=== PATIENT | female | born 1990 | race Caucasian/White ===

== ENCOUNTER 2019-05-21 10:07 | Outpatient (RCR) | payer MEDICARE, MEDICAID, SELFPAY | END 2019-05-29 00:01 | LOC: MPT 10:07 | PROVIDERS: Family Provider Family Medicine; Visit Provider Family Medicine | DX: M54.32 Sciatica, left side (principal); M25.552 Pain in left hip; M25.551 Pain in right hip | CPT/HCPCS: 97110 ×2; 97140; 97161 ==

== ENCOUNTER 2019-05-30 06:00 | Outpatient (RCR) | payer MEDICARE, SELFPAY | END 2019-06-29 23:59 | disposition home or self-care (01) | LOC: MPT 06:00 | PROVIDERS: Family Provider Family Medicine; PCP Family Medicine; Visit Provider Family Medicine | DX: M54.32 Sciatica, left side (principal); M25.552 Pain in left hip; M25.551 Pain in right hip | CPT/HCPCS: 97110; 97140 ==

== ENCOUNTER → 2019-06-25 15:07 | Outpatient (BNVA) | payer MEDICARE, MEDICAID, SELFPAY | PROVIDERS: Family Provider Family Medicine; PCP Family Medicine; Referring Provider Family Medicine; Visit Provider Specialist | DX: M25.552 Pain in left hip (principal); M25.551 Pain in right hip | CPT/HCPCS: 73522 ==

== ENCOUNTER 2019-07-11 12:40 | Outpatient (CLI) | payer MEDICARE, SELFPAY ==
--- NOTE | 2019-07-11 12:59 | MR_ITS ---
WS: [id number] MRI LEFT HIP ARTHROGRAM. INDICATION: Left hip pain TECHNIQUE: MRI of the left hip without gadolinium enhancement followed by MRI arthrogram post intra-articular administration of gado linium. Some images degraded by patient motion. FINDINGS: Normal anatomic alignment. No acute fractures. No bone marrow edema in the femoral head or neck. Normal sacrum and pubic rami. Normal iliac wings. Visualized lower lumbar spine appears unremar kable. Femoral head cartilage is normal in appearance. Anterior superior labrum is normal in appearance. No visualized labral avulsion or labral tear. Acetabulum is normal in appearance. No evidence of subchon dral cystic change. Normal posterior labrum. No evidence of labral or paralabral cyst. No evidence of capsular laxity. No inguinal lymphadenopathy. No evidence of avascular necrosis or subchondral collapse involving the left femoral head. Unremarkab le greater trochanter. Proximal femoral shafts appear normal. MR/MR hip LT wo/w con [id number] IMPRESSION: 1. Both hips are normal in appearance. No evidence of avascular necrosis or ed nic. 2. Left femoral head and neck are normal in appearance. 3. Arthrogram images demonstrate no evidence of labral tear. Normal appearing anterior superior labrum. 4. Normal-appearing articular cartilage bilaterally. Normal acetabulum.
--- NOTE | 2019-07-11 14:00 | IR_ITS ---
WS: [id number] LEFT HIP ARTHROGRAM Fluoroscopic guided left hip arthrogram. CLINICAL INFORMATION: ARTHRALGIA OF HIP COMPARISON: None. TECHNIQUE: The procedure including risks, benefits, and complications were discussed with the patient , who agreed to proceed. Timeout was performed. Using sterile technique, the patient was prepped and draped in the usual sterile fashion. After 1% lidocaine injection using fluoroscopic guidance, a 22-g auge spinal needle was advanced into the left hip joint at the femoral head neck junction. Subsequent ly 12 cc of a mixture containing 5 cc 1% lidocaine, 10 cc normal saline, 5 cc Omnipaque 300, and 0.1 cc gadolinium was administered. No immediate complications. FLUOROSCOPY TIME: 0.8 minutes. IR/[place] [id number] IMPRESSION: Uncomplicated left hip fluoroscopic guided arthrogram. MRI to follow.
[2019-07-11] MEDS: iohexol 240 mg/mL 50 mL Btl INTRA-ARTI (15:25)
== END 2019-07-11 12:41 | disposition home or self-care (01) ==
PROVIDERS: Family Provider Family Medicine; PCP Family Medicine; Visit Provider Specialist
DX: M25.552 Pain in left hip (principal)
CPT/HCPCS: 27093; 73723; 77002; A9579

== ENCOUNTER 2019-10-06 13:52 | Inpatient (IN) | payer MEDICARE, MEDICAID, SELFPAY ==
[2019-10-06] VITALS (32 sets, daily range): BP systolic 88–148; BP diastolic 53–100; PULSE 87–117; RESP 14–29; TEMP 36.4–37; O2SAT 90–100; BMI 23.3
[2019-10-06 14:18] LABS: Glucose Point of Care 506 mg/dL (70-110)
--- NOTE | 2019-10-06 14:18 | PC.NURSE ---
EKG done and shown to ER doctor at 1415 and patient blood glucose is 506, charge nurse and doctor notified
--- NOTE | 2019-10-06 14:26 | ECG_ITS ---
Measurements Intervals [place] Rate: 107 P: 66 WI: 128 QRS: -7 QRSD: 101 T: 43 QT: 351 QTc: 470 SINUS TACHYCARDIA LEFT ATRIAL ENLARGEMENT [-0.15mV P WAVE IN V1/V2] INCOMPLETE RIGHT BUNDLE BRANCH BLOCK [90+ ms QRS DURATION, TERMINAL R IN V1/V2, 40+ ms S IN I/aVL/V4/V5/V6] No previous ECG available for comparison Electronically Signed On 10-07-2019 19:56:14 CDT by Madison Martinez M.D. [id number]
--- NOTE | 2019-10-06 14:26 | XR_ITS ---
WS: [id number] XR chest 1V portable [id number] REASON FOR EXAM: chest pain FINDINGS: The heart and mediastinal interfaces are normal. The lung carrillo are adequately aerated. No definite pneumonia, pleural effusion, pulmonary edema, are pneumothorax. The hilum and apices normal. No osseous abnormalities. XR/XR chest 1V portable [id number] IMPRESSION: Negative chest for acute pathology.
[2019-10-06] MEDS: sodium chloride 0.9% 1,000 ML 999 ML IV ×2 (14:51→19:17)
[2019-10-06 14:52] LABS: ABG PCO2 34.8 mmHg (35-45); ABG PH Result 7.27 (7.35-7.45); Base Excess ABG -9.8 mmol/L (-2.0-2.0); Blood Gas Allen Test Pos; Blood Gas Sample Site Brachial, left; Blood Gas Sample Type Arterial; HCO3 ABG 16.1 mmol/L (22-26); Oxygen Device ROOM AIR; PO2 ABG 79.5 mmHg (80.0-100.0)
[2019-10-06 14:55] LABS: Basophils # 0.1 10^3/uL (0.0-0.1); Basophils % 0.3 %; Eosinophils % 0.2 %; Hematocrit 44.1 % (37.0-47.0); Hemoglobin 13.9 g/dL (11.5-15.3); Lymphocytes # 2.1 10^3/uL (0.8-4.8); Lymphocytes % 8.9 %; Mean Corpuscular HGB Conc 31.5 g/dL (30.0-36.0); Mean Corpuscular Hemoglobin 29.6 pg (28.0-34.0); Mean Platelet Volume 10.7 fL (7.4-10.4); Monocytes # 0.7 10^3/uL (0.2-0.9); Monocytes % 3.2 %; Neutrophils # 20.3 10^3/uL (1.8-7.7); Neutrophils % 86.9 %; Nucleated Red Blood Cells % 0 %; Platelet Count 430 10^3/cmm (130-400); Red Blood Count 4.69 10^6/uL (4.1-5.3); Red Cell Distribution Width 12.6 % (12.1-15.1); White Blood Count 23.3 10^3/uL (4.0-10.0)
[2019-10-06] MEDS: ondansetron 2 mg/ML SDV 2 mL 4 MG IVP (14:57)
[2019-10-06 15:04] LABS: Ketone (Acetest) Serum Positive (Negative)
[2019-10-06 15:09] LABS: INR 1.05 (0.8-1.2)
[2019-10-06 15:17] LABS: Alanine Aminotransferase 13 U/L (0-33); Albumin Level 4.7 g/dL (3.5-5.2); Alkaline Phosphatase 191 IU/L (35-105); Anion Gap 30.8 (5-19); Aspartate Amino Transferase 19 U/L (0-32); Blood Urea Nitrogen 18 mg/dL (6-20); Calcium 9.6 mg/dL (8.5-10.5); Carbon Dioxide 16 mmol/L (22-29); Chloride 93 mmol/L (98-107); Globulin 3.9 g/dL (1.3-4.6); Glomerular Filtration Rate 65.1 mL/min (90-130); Lipase 3 U/L (13-60); Osmolality Calculated 299 mOsm/kg (285-295); Potassium 4.8 mmol/L (3.5-5.1); Sodium 135 mmol/L (136-145); Total Bilirubin 0.5 mg/dL (0.15-1.2); Total Protein 8.6 g/dL (6.6-8.7)
[2019-10-06 15:19] LABS: Troponin(5th) Baseline 6 ng/mL (0-10)
[2019-10-06 15:27] LABS: Glucose 511 mg/dL (65-115)
[2019-10-06] MEDS: insulin regular-human 250 UNIT in sodium chloride 0.9% 250 ML 6 UNIT IV (15:36)
[2019-10-06] MEDS: morphine 4 mg/mL SDV 1 mL IVP (15:48)
--- NOTE | 2019-10-06 16:26 | ECG_ITS ---
Measurements Intervals [place] Rate: 99 P: 66 DC: 130 QRS: 16 QRSD: 93 T: 32 QT: 346 QTc: 445 SINUS RHYTHM INCOMPLETE RIGHT BUNDLE BRANCH BLOCK [90+ ms QRS DURATION, TERMINAL R IN V1/V2, 40+ ms S IN I/aVL/V4/V5/V6] No previous ECG available for comparison Electronically Signed On 10-07-2019 20:13:43 CDT by Madison Martinez M.D. [email or web address]
--- NOTE | 2019-10-06 16:30 | PC.NURSE ---
Pt admitted to ICU. Pt alert and present. Pt has a glucose monitor located on her left upper arm Also noted insulin pump site on right lower abdomen. Insulin pump is off and unattached at this time.
--- NOTE | 2019-10-06 17:05 | ED_ITS ---
HPI - Chest Pain General: Chief Complaint: Chest Pain Stated Complaint: cp Time Seen by Provider: 10/06/19 14:00 Source: patient Mode of arrival: ambulatory Limitations: no limitations History of Present Illness: HPI narrative: 29-year-old female patient with a history of cystic fibrosis and type 1 diabetes who presents to the emergency department with complaints of nausea and vomiting. Symptoms started about 2 to 3 days ago. She has been unable to keep anything down since yesterday. Today she developed left-sided chest pain radiating to both shoulders and that concerned her so she came in for evaluation. She denies any fever. Denies any urinary symptoms. Denies any sick contacts. Associated symptoms: Reports abdominal pain, nausea and vomiting; Deny dyspnea, fever(s) or palpitations Review of Systems General: Reports: 10 or more systems reviewed and unremarkable except in HPI and below Const: Denies: fever, chills or body aches Eyes: Denies: change in vision or blurry vision ENMT: Denies: throat pain, enlarged tonsils, painful swallowing, hoarseness, mouth pain or swelling of lips/tongue Card: Reports: chest pain; Denies: palpitations, irregular heart rhythm, edema or swelling of feet/ankles Resp: Denies: shortness of breath, productive cough or non-productive cough GI: Reports: abdominal pain, nausea and vomiting : Denies: flank pain, difficulty urinating, painful urination, urinary frequency, urinary urgency or urinary hesitancy Musc: Denies: neck pain, back pain or extremity swelling Skin/Breast: Denies: rash, itching or redness Neuro: Denies: headache, numbness in extremities or weakness in extremities Endo: Denies: excessive urination, excessive thirst or tired all the time [facility] ED PFSH: Medical History Anxiety Cystic fibrosis Depression GERD (gastroesophageal reflux disease) Pancreatitis Type 1 diabetes Surgical History History of biliary stent insertion Family History Sister Leukemia Sister , at 26 yo Cystic fibrosis Social History Smoking and tobacco status: never smoked Alcohol intake: never Substance/Drug Use: never Lives independently: Yes Marital status: Current occupational status: disabled Female Reproductive History: Date of last menstrual period: 10/04/19 Physical Exam Const: COMMON NORMALS: no apparent distress, average body habitus, oriented x3, no limitations, healthy appearing, alert and well nourished HENMT: COMMON NORMALS: normocephalic and head/scalp atraumatic HEAD & SCALP: normocephalic and atraumatic MOUTH: moist mucous membranes abnormal (Dry mucous membrane) Eye: COMMON NORMALS: PERRL, EOMs intact bilaterally, conjunctivae normal and no scleral icterus CONJUNCTIVA: Yes conjunctivae normal PUPIL: Yes PERRL Neck/C-Spine: COMMON NORMALS: full ROM, supple, no meningeal signs, no JVD and no carotid bruits Chest: COMMONS NORMALS: inspection of chest normal and palpation of chest normal Resp: COMMON NORMALS: normal respiratory effort, no retractions, no use of accessory muscles, clear to auscultation bilaterally and percussion normal AUSCULTATION: clear to auscultation bilaterally PERCUSSION: percussion normal Cardio: COMMON NORMALS: no JVD, regular rhythm, S1 normal heart sound, S2 normal heart sound, no gallops, no clicks, no murmurs, no rub and peripheral pulses 2+ throughout RATE: tachycardic RHYTHM: regular rhythm HEART SOUNDS: S1 normal and S2 normal PERIPHERAL PULSES: pulses 2+ throughout GI: COMMON NORMALS: soft to palpation, non-tender, no hepatosplenomegaly, no masses and no bruits PALPATION: Yes soft, Yes tender (Epigastric) and Yes no hepatosplenomegaly : COMMON NORMALS: Yes no CVA tenderness BLADDER/KIDNEY EXAM: Yes no CVA tenderness Back/Pelvis: COMMON NORMALS: no CVA tenderness Extremity: COMMON NORMALS: normal to inspection, full ROM, normal capillary refill, no calf tenderness and no pedal edema Neuro: COMMON NORMALS: oriented x3 SENSORIUM/ORIENTATION: Yes alert MENINGEAL SIGNS: Yes no meningeal signs Skin: COMMON NORMALS: no rashes or lesions noted, no wounds, skin turgor normal, no jaundice, no petechiae and no mottling GENERAL SKIN EXAM: no rashes or lesions noted and turgor normal Course Consultations: Consultation #1: Dr. Trammell, hospitalist. He kindly accepted patient to his service. Vital Signs: Vital signs: Vital Signs Temperature 98.6 F 10/06/19 20:00 Pulse Rate 99 10/06/19 20:00 Respiratory Rate 20 H 10/06/19 20:00 Blood Pressure 121/79 10/06/19 19:45 Pulse Oximetry 96 10/06/19 20:00 MDM - Chest Pain MDM Narrative: Medical decision making narrative: 29-year-old female with a history of cystic fibrosis and type 1 diabetes mellitus presents to the emergency department with nausea vomiting and abdominal pain. Evaluation in the emergency department showed that the patient was in diabetic ketoacidosis. She was started on an insulin drip and admitted to the intensive care unit for further evaluation and management. Medical Records: Attestation: I reviewed the patient's medical records. Lab Data: Labs: Lab Results 10/06/19 10/06/19 10/06/19 Range/Units 14:11 14:41 14:46 WBC 23.3 H (4.0-10.0) 10^3/ uL RBC 4.69 (4.1-5.3) 10^6/u L Hgb 13.9 (11.5-15.3) g/dL Hct 44.1 (37.0-47.0) % MCV 94.0 (81-99) fL MCH 29.6 (28.0-34.0) pg MCHC 31.5 (30.0-36.0) g/dL RDW 12.6 (12.1-15.1) % Plt Count 430 H (130-400) 10^3/c mm MPV 10.7 H (7.4-10.4) fL Neut % (Auto) 86.9 % Lymph % (Auto) 8.9 % [place] % (Auto) 3.2 % Eos % (Auto) 0.2 % Baso % (Auto) 0.3 % Neut # (Auto) 20.3 H (1.8-7.7) 10^3/u L Lymph # (Auto) 2.1 (0.8-4.8) 10^3/u L [place] # (Auto) 0.7 (0.2-0.9) 10^3/u L Eos # (Auto) 0.0 (0.0-0.8) 10^3/u L Baso # (Auto) 0.1 (0.0-0.1) 10^3/u L Nucleated RBC % (a uto) 0 % Nucleated RBCs # 0.0 /100WBC PT (10.5-13.3) SECO NDS INR (0.8-1.2) D-Dimer (0-0.59) ug/mIFE U Specimen Type Arterial Sample Site Brachial, left ABG pH 7.27 L (7.35-7.45) ABG pCO2 34.8 L (35-45) mmHg ABG pO2 79.5 L (80.0-100.0) mmH g ABG HCO3 16.1 L (22-26) mmol/L ABG Base Excess -9.8 L (-2.0-2.0) mmol/ L Te Test Pos Hematocrit 42.0 (37-47) % O2 Delivery Device Room air FiO2 21.0 % Metal Building As[employer]er ID cak Sodium (136-145) mmol/L Potassium (3.5-5.1) mmol/L Chloride (98-107) mmol/L Carbon Dioxide (22-29) mmol/L Anion Gap (5-19) BUN (6-20) mg/dL Creatinine (0.5-0.9) mg/dL GFR Calculation (90-130) mL/min Glucose (65-115) mg/dL POC Glucose 506 (70-110) mg/dL Calculated Osmolal ity (285-295) mOsm/k g Calcium (8.5-10.5) mg/dL Phosphorus (2.5-4.5) mg/dL Magnesium (1.7-2.3) mg/dL Total Bilirubin (0.15-1.2) mg/dL GGT (5-36) U/L AST (0-32) U/L ALT (0-33) U/L Alkaline Phosphata se (35-105) IU/L Troponin T Baselin e (0-10) ng/mL Total Protein (6.6-8.7) g/dL Albumin (3.5-5.2) g/dL Globulin (1.3-4.6) g/dL Lipase (13-60) U/L Serum Ketones (Negative) 10/06/19 10/06/19 10/06/19 Range/Units 14:46 14:46 14:46 WBC (4.0-10.0) 10^3/ uL RBC (4.1-5.3) 10^6/u L Hgb (11.5-15.3) g/dL Hct (37.0-47.0) % MCV (81-99) fL MCH (28.0-34.0) pg MCHC (30.0-36.0) g/dL RDW (12.1-15.1) % Plt Count (130-400) 10^3/c mm MPV (7.4-10.4) fL Neut % (Auto) % Lymph % (Auto) % [place] % (Auto) % Eos % (Auto) % Baso % (Auto) % Neut # (Auto) (1.8-7.7) 10^3/u L Lymph # (Auto) (0.8-4.8) 10^3/u L [place] # (Auto) (0.2-0.9) 10^3/u L Eos # (Auto) (0.0-0.8) 10^3/u L Baso # (Auto) (0.0-0.1) 10^3/u L Nucleated RBC % (a uto) % Nucleated RBCs # /100WBC PT 14.00 H (10.5-13.3) SECO NDS INR 1.05 (0.8-1.2) D-Dimer (0-0.59) ug/mIFE U Specimen Type Sample Site ABG pH (7.35-7.45) ABG pCO2 (35-45) mmHg ABG pO2 (80.0-100.0) mmH g ABG HCO3 (22-26) mmol/L ABG Base Excess (-2.0-2.0) mmol/ L Te Test Hematocrit (37-47) % O2 Delivery Device FiO2 % Metal Building Assembler ID Sodium 135 L (136-145) mmol/L Potassium 4.8 (3.5-5.1) mmol/L Chloride 93 L (98-107) mmol/L Carbon Dioxide 16 L (22-29) mmol/L Anion Gap 30.8 H (5-19) BUN 18 (6-20) mg/dL Creatinine 1.0 H (0.5-0.9) mg/dL GFR Calculation 65.1 L (90-130) mL/min Glucose 511 H* (65-115) mg/dL POC Glucose (70-110) mg/dL Calculated Osmolal ity 299 H (285-295) mOsm/k g Calcium 9.6 (8.5-10.5) mg/dL Phosphorus (2.5-4.5) mg/dL Magnesium (1.7-2.3) mg/dL Total Bilirubin 0.5 (0.15-1.2) mg/dL GGT (5-36) U/L AST 19 (0-32) U/L ALT 13 (0-33) U/L Alkaline Phosphata se 191 H (35-105) IU/L Troponin T Baselin e (0-10) ng/mL Total Protein 8.6 (6.6-8.7) g/dL Albumin 4.7 (3.5-5.2) g/dL Globulin 3.9 (1.3-4.6) g/dL Lipase 3 L (13-60) U/L Serum Ketones Positive H (Negative) 10/06/19 10/06/19 10/06/19 Range/Units 14:46 14:46 14:46 WBC (4.0-10.0) 10^3/ uL RBC (4.1-5.3) 10^6/u L Hgb (11.5-15.3) g/dL Hct (37.0-47.0) % MCV (81-99) fL MCH (28.0-34.0) pg MCHC (30.0-36.0) g/dL RDW (12.1-15.1) % Plt Count (130-400) 10^3/c mm MPV (7.4-10.4) fL Neut % (Auto) % Lymph % (Auto) % [place] % (Auto) % Eos % (Auto) % Baso % (Auto) % Neut # (Auto) (1.8-7.7) 10^3/u L Lymph # (Auto) (0.8-4.8) 10^3/u L [place] # (Auto) (0.2-0.9) 10^3/u L Eos # (Auto) (0.0-0.8) 10^3/u L Baso # (Auto) (0.0-0.1) 10^3/u L Nucleated RBC % (a uto) % Nucleated RBCs # /100WBC PT (10.5-13.3) SECO NDS INR (0.8-1.2) D-Dimer <= 0.27 (0-0.59) ug/mIFE U Specimen Type Sample Site ABG pH (7.35-7.45) ABG pCO2 (35-45) mmHg ABG pO2 (80.0-100.0) mmH g ABG HCO3 (22-26) mmol/L ABG Base Excess (-2.0-2.0) mmol/ L Te Test Hematocrit (37-47) % O2 Delivery Device FiO2 % Metal Building Assembler ID Sodium (136-145) mmol/L Potassium (3.5-5.1) mmol/L Chloride (98-107) mmol/L Carbon Dioxide (22-29) mmol/L Anion Gap (5-19) BUN (6-20) mg/dL Creatinine (0.5-0.9) mg/dL GFR Calculation (90-130) mL/min Glucose (65-115) mg/dL POC Glucose (70-110) mg/dL Calculated Osmolal ity (285-295) mOsm/k g Calcium (8.5-10.5) mg/dL Phosphorus 3.7 (2.5-4.5) mg/dL Magnesium 2.2 (1.7-2.3) mg/dL Total Bilirubin (0.15-1.2) mg/dL GGT (5-36) U/L AST (0-32) U/L ALT (0-33) U/L Alkaline Phosphata se (35-105) IU/L Troponin T Baselin e 6 (0-10) ng/mL Total Protein (6.6-8.7) g/dL Albumin (3.5-5.2) g/dL Globulin (1.3-4.6) g/dL Lipase (13-60) U/L Serum Ketones (Negative) 10/06/19 Range/Units 14:46 WBC (4.0-10.0) 10^3/ uL RBC (4.1-5.3) 10^6/u L Hgb (11.5-15.3) g/dL Hct (37.0-47.0) % MCV (81-99) fL MCH (28.0-34.0) pg MCHC (30.0-36.0) g/dL RDW (12.1-15.1) % Plt Count (130-400) 10^3/c mm MPV (7.4-10.4) fL Neut % (Auto) % Lymph % (Auto) % [place] % (Auto) % Eos % (Auto) % Baso % (Auto) % Neut # (Auto) (1.8-7.7) 10^3/u L Lymph # (Auto) (0.8-4.8) 10^3/u L [place] # (Auto) (0.2-0.9) 10^3/u L Eos # (Auto) (0.0-0.8) 10^3/u L Baso # (Auto) (0.0-0.1) 10^3/u L Nucleated RBC % (a uto) % Nucleated RBCs # /100WBC PT (10.5-13.3) SECO NDS INR (0.8-1.2) D-Dimer (0-0.59) ug/mIFE U Specimen Type Sample Site ABG pH (7.35-7.45) ABG pCO2 (35-45) mmHg ABG pO2 (80.0-100.0) mmH g ABG HCO3 (22-26) mmol/L ABG Base Excess (-2.0-2.0) mmol/ L Te Test Hematocrit (37-47) % O2 Delivery Device FiO2 % Metal Building Assembler ID Sodium (136-145) mmol/L Potassium (3.5-5.1) mmol/L Chloride (98-107) mmol/L Carbon Dioxide (22-29) mmol/L Anion Gap (5-19) BUN (6-20) mg/dL Creatinine (0.5-0.9) mg/dL GFR Calculation (90-130) mL/min Glucose (65-115) mg/dL POC Glucose (70-110) mg/dL Calculated Osmolal ity (285-295) mOsm/k g Calcium (8.5-10.5) mg/dL Phosphorus (2.5-4.5) mg/dL Magnesium (1.7-2.3) mg/dL Total Bilirubin (0.15-1.2) mg/dL GGT 10 (5-36) U/L AST (0-32) U/L ALT (0-33) U/L Alkaline Phosphata se (35-105) IU/L Troponin T Baselin e (0-10) ng/mL Total Protein (6.6-8.7) g/dL Albumin (3.5-5.2) g/dL Globulin (1.3-4.6) g/dL Lipase (13-60) U/L Serum Ketones (Negative) EKG Data^: EKG 1: Computer generated interpretation: [place] [address] Electrocardiograph Report Draft Patient: Kateryna Ordoñez #: [id number] : 1990Acct#:[id number] Age/Sex: 29 / FADM Date: 10/06/19 Loc: ICURoom/Bed: [place] [address]: Pipe Trammell MD Ordering Provider/Ordering MD: Maggy Young MD, [facility] Date of Service: 10/06/19 Procedure(s): ECG 12 lead EKG Accession Number(s): [id number] Report Number: [id number] Measurements Intervals [place] Rate: 98 P: 68 HI: 142 QRS: 24 QRSD: 98 T: 47 QT: 359 QTc: 459 SINUS RHYTHM POSSIBLE LEFT ATRIAL ENLARGEMENT [-0.1mV P WAVE IN V1/V2] INCOMPLETE RIGHT BUNDLE BRANCH BLOCK [90+ ms QRS DURATION, TERMINAL R IN V1/V2, 40+ ms S IN I/aVL/V4/V5/V6] MODERATE T-WAVE ABNORMALITY, CONSIDER ANTERIOR ISCHEMIA [-0.1+ mV T WAVE IN V3/V4] No previous ECG available for comparison [email or web address] Dictated By:INTERFACE,USER Signed By:Signed Date/Time: DD/ 01 Discharge Plan Discharge Patient Disposition: Admitted As Inpatient Admit Provider: Pipe Trammell Clinical Impression: DKA (diabetic ketoacidoses), Cystic fibrosis Condition: Stable Interventions: ED Discharge Assessment Last Done: 10/06/19 16:22 ED Charges Last Done: 10/06/19 16:27 Discharge Date/Time: 10/06/19 18:44 Coding Level of Care Code ED Store Manager for [facility]
[2019-10-06 17:28] LABS: Add Urine Microscopic? NO
[2019-10-06 17:37] LABS: Bilirubin Urine Neg (NEGATIVE); Blood Urine Neg (Negative); Glucose Urine UA 4+ (Normal); Ketones Urine 2+ (Negative); Leukocyte Esterase Urine Negative (Negative); Nitrate Urine Negative (Negative); Protein Urine Neg (Negative); Specific Gravity, Urine 1.015 (1.005-1.030); Urine Appearance Clear (CLEAR); Urine Color Yellow (Yellow); Urobilinogen Urine Norm (Negative); pH Urine 5 (5-7)
[2019-10-06 17:51] LABS: Troponin 5 2HR 7.15 ng/mL (0-10); Troponin 5 2HR Delta 1.15 ABS# (0-10)
--- NOTE | 2019-10-06 17:53 | P.HP_ITS ---
Providers/Chief Complaint Admitting Physician: Pipe Trammell Primary Care Provider: Sarahi Nation MD Chief Complaint: cp History of Present Illness Kateryna Ordoñez is a 29 year old female with cystic fibrosis, DM 1, GERD, anxiety, depression, with past episode of pancreatitis, with prior history of biliary obstruction and ERCP, recently has been having some more upper respi ratory secretions, and postnasal drip, for which she saw her yardage estimator, she says she has been coughing slightly more, but then today developed episodes of nausea and vomiting. As well as episodes of chest pain on the left side while on the road to the ER. Chest pain she reports was burning, persistent, not changing with breathing, or changing position. It resolved in ER after some pain medicine, and has not come back. She does report she changed her insulin pump yesterday, and changed the needle to the new location, although thinks that perhaps it was not infusing properly. In ER she is found in ketoacidosis, with glucose 511, anion gap 30.8, carbon dioxide 16, positive urine and serum ketones. pH 7.27 on ABG. She is tachycardic, heart rate 115. She is saturating 98% on room air. Blood pressure 122/66. Troponin is 6. Incomplete RBBB.EKG with sinus tachycardia. She is currently feeling better. No nausea or vomiting. Review of Systems Const: Reports: malaise; Denies: fever, chills or body aches Eyes: Denies: change in vision or eye redness ENMT: Denies: throat pain, oral sores/lesions or ear pain Card: Reports: chest pain; Denies: edema, pre-syncope or shortness of breath on exertion Resp: Reports: productive cough; Denies: shortness of breath, change in phlegm color or coughing up blood GI: Reports: nausea and vomiting; Denies: abdominal pain, diarrhea, constipation, blood in stool or black tarry stool : Denies: flank pain, urinary frequency or blood in urine Musc: Denies: back pain, joint swelling or redness Skin/Breast: Denies: rash, sores or new lesion Neuro: Denies: headache, numbness in extremities, weakness in extremities, dizziness, confusion or seizure-like activity Endo: Denies: excessive urination or excessive thirst Raza/Lymph: Denies: easy bleeding or purpura All/Imm: Denies: hives, throat swelling or tongue swelling Medications/Allergies Home Medications Medication Instructions Recorded Confirmed Last Taken Type azithromycin 500 mg PO DAILY 10/06/19 10/06/19 10/06/19 History wjrfcilcqig-cifyknikdg-hdchcok 1 ea PO DAILY 10/06/19 10/06/19 10/06/19 History [Trikafta] gabapentin See Rx Instructions .ROUTE .COMPLEX 10/06/19 10/06/19 10/06/19 History insulin aspart U-100 [Novolog See Rx Instructions .ROUTE .COMPLEX 10/06/19 10/06/19 Unknown History U-100 Insulin aspart] levalbuterol HCl 0.63 mg INHALATION DAILY 10/06/19 10/06/19 10/06/19 History znhbfg-giqlvned-jikatpw [Creon] See Rx Instructions .ROUTE .COMPLEX 10/06/19 10/06/19 Unknown History omeprazole 40 mg PO DAILY 10/06/19 10/06/19 10/06/19 History ursodiol 300 mg PO DAILY 10/06/19 10/06/19 10/06/19 History Allergies Allergy/AdvReac Type Severity Reaction Status Date / Time vancomycin Allergy Severe ALGY-Rash Verified 06/25/19 15:28 Influenza Virus Vaccines Allergy ALGY-Rash Verified 10/06/19 14:11 PFSH Acute PFSH: Medical History Anxiety Cystic fibrosis Depression GERD (gastroesophageal reflux disease) Pancreatitis Type 1 diabetes Surgical History History of biliary stent insertion Family History Sister Leukemia Sister , at 26 yo Cystic fibrosis Social History Smoking and tobacco status: never smoked Alcohol intake: never Substance/Drug Use: never Lives independently: Yes Marital status: Current occupational status: disabled Female Reproductive History: Date of last menstrual period: 10/04/19 Vitals/I&O/Wt Last Vital Signs Temp 97.5 F L 10/06/19 14:06 Pulse 115 H 10/06/19 16:28 Resp 21 H 10/06/19 16:22 BP 122/66 10/06/19 16:22 Pulse Ox 98 10/06/19 16:28 Weight last 48 hrs Weight 63.503 kg Physical Exam Const: COMMON NORMALS: no apparent distress and oriented x3 HENMT: COMMON NORMALS: oropharynx normal Neck/C-Spine: COMMON NORMALS: no JVD Resp: COMMON NORMALS: normal respiratory effort and clear to auscultation bilaterally AUSCULTATION: clear to auscultation bilaterally Cardio: COMMON NORMALS: no JVD, regular rhythm, S1 normal heart sound, S2 normal heart sound and no murmurs RHYTHM: regular rhythm HEART SOUNDS: S1 normal and S2 normal GI: COMMON NORMALS: normal to inspection, nondistended, normoactive bowel sounds, soft to palpation and non-tender PALPATION: Yes soft Extremity: COMMON NORMALS: no joint enlargement and no pedal edema Neuro: COMMON NORMALS: oriented x3 and moves all extremities Skin: COMMON NORMALS: no rashes or lesions noted GENERAL SKIN EXAM: no rashes or lesions noted Data : 10/06/19 14:46 10/06/19 14:46 A&P Assessment and plan (1) DKA (diabetic ketoacidoses): pH 7.27, anion gap 30.8, bicarbonate 16. Admit to ICU, fluid resuscitation, will give additional normal saline bolus, then maintain fluid infusion. We will give additional potassium 20 mEq currently. Monitor potassium magnesium, phosphorus. For now n.p.o., sips and chips. Subsequently may resume her usual regimen. At home she also usually takes high- protein, high-calorie diet due to CF. She had some nausea, but no abdominal pain. Lipase is not elevated. Does have history of episode of pancreatitis in the past. Assess right quadrant ultrasound. Status: Acute (2) Chest pain: Episode of chest pain just prior to coming to ER. Burning sensation on left side, fairly severe, which resolved in ER with pain medication. Currently asymptomatic. Does have some sinus tachycardia 90s-100. Denies any more cough than usual. Does not have more shortness of breath than usual. Has not had any hemoptysis. No unilateral edema. Discussed with her. At this time will check a d-dimer. Suspicion is not overly high for PE currently. Will have on prophylactic Lovenox dose. Low threshold for additional assessment. Complete troponin EKG series. Status: Acute (3) Alkaline phosphatase elevation: Isolated alkaline phosphatase elevation. History of biliary stenting due to obstruction in setting of cystic fibrosis. T bili, other liver parameters normal. She does not have right upper quadrant pain, no pain on examination. At this time will check GGT. Will assess right quadrant ultrasound. For now monitor. Status: Acute (4) History of biliary stent insertion: She will try to get someone to bring ursodiol. Status: Acute (5) Pancreatitis: History of. Status: Resolved (6) Type 1 diabetes: On insulin pump. Follows with a dietitian. At home maintains high- protein, high-calorie diet due to CF. Status: Chronic (7) Cystic fibrosis: She will try to get Trikafta. Status: Chronic (8) GERD (gastroesophageal reflux disease): Continue PPI Status: Acute Additional A&P Information Leukocytosis: Secondary to DKA, dehydration. At this time no sign of acute infection. Attestations Medical Necessity Statement*: Admission of over 2 midnights is going to be needed for assessment management of DKA, in the setting of CF, episode of chest pain. Coding Level of Care Code Acute Reporting Specialist for [facility] Fwd Diagnoses DKA (diabetic ketoacidoses) E11.10 Chest pain R07.9 Alkaline phosphatase elevation R74.8 History of biliary stent insertion Z98.890 Pancreatitis K85.90 Type 1 diabetes E10.9 Cystic fibrosis E84.9 GERD (gastroesophageal reflux disease) K21.9
[2019-10-06 18:00] LABS: HCG Qualitative Urine. Negative (Negative)
[2019-10-06 18:26] LABS: Magnesium 2.2 mg/dL (1.7-2.3); Phosphorus 3.7 mg/dL (2.5-4.5)
[2019-10-06 18:55] LABS: D Dimer <= 0.27 ug/mIFEU (0-0.59)
[2019-10-06] MEDS: enoxaparin 40 mg/0.4 mL Syringe SUBCUT (19:08)
[2019-10-06 19:10] LABS: Gamma Glutamyl Transferase 10 U/L (5-36)
--- NOTE | 2019-10-06 20:26 | ECG_ITS ---
Measurements Intervals [place] Rate: 98 P: 68 TN: 142 QRS: 24 QRSD: 98 T: 47 QT: 359 QTc: 459 SINUS RHYTHM POSSIBLE LEFT ATRIAL ENLARGEMENT [-0.1mV P WAVE IN V1/V2] INCOMPLETE RIGHT BUNDLE BRANCH BLOCK [90+ ms QRS DURATION, TERMINAL R IN V1/V2, 40+ ms S IN I/aVL/V4/V5/V6] MODERATE T-WAVE ABNORMALITY, CONSIDER ANTERIOR ISCHEMIA [-0.1+ mV T WAVE IN V3/V4] No previous ECG available for comparison Electronically Signed On 10-07-2019 20:12:26 CDT by aMdison Matrinez M.D. [email or web address]
[2019-10-06] MEDS: dextrose 5%-sod chloride 0.45% 1,000 ML 150 ML IV (20:29)
[2019-10-06] MEDS: gabapentin 300 mg Capsule 600 MG PO (20:40)
--- NOTE | 2019-10-06 21:29 | PC.NURSE ---
2000 patient blood glucose under 200. per Dr. order to start 0.45%NS after glucose under 200. called and verified order. order changed to D5 0.45% AT 150ML/HR. 2099 patient blood glucose reading 85. call to . per to stop insulin and continue D5 at this time. Verbal order to drawn BMP. continue to monitor blood glucose. vital signs stable at this time.
[2019-10-06 21:46] LABS: Blood Urea Nitrogen 20 mg/dL (6-20); Calcium 9.1 mg/dL (8.5-10.5); Carbon Dioxide 21 mmol/L (22-29); Chloride 104 mmol/L (98-107); Glomerular Filtration Rate 73.5 mL/min (90-130); Glucose 119 mg/dL (65-115); Osmolality Calculated 286 mOsm/kg (285-295); Sodium 139 mmol/L (136-145)
[2019-10-06] MEDS: acetaminophen 325 mg Tablet 650 MG PO (23:47)
[2019-10-07] VITALS (31 sets, daily range): BP systolic 80–121; BP diastolic 42–71; PULSE 76–99; RESP 0–30; TEMP 36.6–36.9; O2SAT 96–99
[2019-10-07] MEDS: insulin glargine 100 units/1 mL 10 UNIT SUBCUT (02:42)
--- NOTE | 2019-10-07 03:31 | PC.NURSE ---
2100 patient glucose 85. call to and informed of patient glucose. per to stop insulin drip at this time and continue to run d5 0.45%. will continue to monitor glucose. 2114 insulin drip paused 2205 BMP lab resulted. anion gap resulting at 18. notified of lab. Per Dr to monitor sugar. once sugar between 140-180 to stop D5 0.45%. Verbal order for diet change. will continue to monitor glucose and patient. 2341 D5 0.45% paused due to sugar of [address] previous order. Patient made statement of concern of having continuous insulin on self pump and not having that now. Called to voice patients concern. Per to have patient use patients insulin pump and monitor that patient uses on daily basis. will continue to monitor patient. 0125 patient sugar 249. call to and notified of glucose. at speaking with patient. Verbal order from to start sliding scale Q1H with target blood glucose level of 140-180. patient informed that we will not be using home monitor and will continue with hourly finger sticks.
[2019-10-07 04:09] LABS: Glucose Point of Care 249 mg/dL (70-110)
[2019-10-07 04:09] LABS: Glucose Point of Care 141 mg/dL (70-110)
[2019-10-07 04:09] LABS: Glucose Point of Care 238 mg/dL (70-110)
[2019-10-07 04:09] LABS: Glucose Point of Care 194 mg/dL (70-110)
[2019-10-07 04:09] LABS: Glucose Point of Care 210 mg/dL (70-110)
[2019-10-07 04:09] LABS: Glucose Point of Care 173 mg/dL (70-110)
[2019-10-07 04:09] LABS: Glucose Point of Care 105 mg/dL (70-110)
[2019-10-07 04:09] LABS: Glucose Point of Care 239 mg/dL (70-110)
[2019-10-07 04:09] LABS: Glucose Point of Care 85 mg/dL (70-110)
[2019-10-07 05:16] LABS: Glucose Point of Care 458 mg/dL (70-110)
[2019-10-07 05:16] LABS: Glucose Point of Care 373 mg/dL (70-110)
[2019-10-07 05:16] LABS: Glucose Point of Care 152 mg/dL (70-110)
[2019-10-07 05:18] LABS: Basophils # 0.1 10^3/uL (0.0-0.1); Basophils % 0.3 %; Eosinophils # 0.1 10^3/uL (0.0-0.8); Eosinophils % 0.3 %; Hemoglobin 11.1 g/dL (11.5-15.3); Lymphocytes # 3.3 10^3/uL (0.8-4.8); Lymphocytes % 20.2 %; Mean Corpuscular HGB Conc 32.6 g/dL (30.0-36.0); Mean Corpuscular Hemoglobin 29.7 pg (28.0-34.0); Mean Corpuscular Volume 90.9 fL (81-99); Mean Platelet Volume 9.8 fL (7.4-10.4); Monocytes # 1.2 10^3/uL (0.2-0.9); Monocytes % 7.2 %; Neutrophils # 11.8 10^3/uL (1.8-7.7); Neutrophils % 71.6 %; Nucleated Red Blood Cells % 0 %; Platelet Count 381 10^3/cmm (130-400); Red Blood Count 3.74 10^6/uL (4.1-5.3); Red Cell Distribution Width 12.8 % (12.1-15.1); White Blood Count 16.5 10^3/uL (4.0-10.0)
[2019-10-07 05:35] LABS: Alanine Aminotransferase 9 U/L (0-33); Albumin Level 3.4 g/dL (3.5-5.2); Alkaline Phosphatase 121 IU/L (35-105); Anion Gap 14.5 (5-19); Aspartate Amino Transferase 14 U/L (0-32); Blood Urea Nitrogen 20 mg/dL (6-20); Calcium 8.4 mg/dL (8.5-10.5); Carbon Dioxide 21 mmol/L (22-29); Chloride 104 mmol/L (98-107); Globulin 3.1 g/dL (1.3-4.6); Glomerular Filtration Rate 73.5 mL/min (90-130); Glucose 171 mg/dL (65-115); Magnesium 2.1 mg/dL (1.7-2.3); Osmolality Calculated 283 mOsm/kg (285-295); Phosphorus 1.9 mg/dL (2.5-4.5); Potassium 3.5 mmol/L (3.5-5.1); Sodium 136 mmol/L (136-145); Total Bilirubin 0.2 mg/dL (0.15-1.2); Total Protein 6.5 g/dL (6.6-8.7)
[2019-10-07 06:16] LABS: Glucose Point of Care 103 mg/dL (70-110)
--- NOTE | 2019-10-07 07:00 | US_ITS ---
WS: [id number] ABDOMINAL ULTRASOUND LIMITED REASON FOR VISIT: epigastric pain TECHNIQUE: Grayscale and Doppler ultrasound examination of the abdomen. FINDINGS: Pancreas: Within normal limits Abdominal aorta and IVC: Within normal limits. Liver: Liver measures 16.2 cm in length. Normal hepatopedal flow. The parenchyma of the liver was normal. Gallbladder: Shadowing effect is noted in the gallbladder fossa suspicious of multiple stones are of operation has occurred vascular clips. No definite stones were identified on the shadowing changes. The common bile duct measured 0.90 cm a definite stone in the duct is not seen. Right kidney: Right kidney measures 10.9 cm x 5.0 cm x 4.3 cm. No hydronephrosis no stones. US/US gall bladder [id number] IMPRESSION: Shadowing of the gallbladder fossa most likely from stones clinical correlation for previous surgery recommended. The common bile duct is upper limits of normal for dilatation, a definite obstr ucting lesion is not seen.
[2019-10-07 07:17] LABS: Glucose Point of Care 57 mg/dL (70-110)
[2019-10-07] MEDS: gabapentin 300 mg Capsule PO ×2 (08:14→14:06)
--- NOTE | 2019-10-07 08:32 | PC.NURSE ---
0700 blood sugar low, 57mg/dl. 40z of OJ and breakfast given. Pt drank juice , did not eat, stated she wasn't hungry. 0800 blood sugar, low 50mg/dl. 8oz of apple juice drank by patient, peanut butter and crackers at beside.
[2019-10-07] MEDS: levalbuterol 0.63 mg/3 mL Neb INHALATION (08:35)
[2019-10-07] MEDS: pantoprazole DR 40 mg Tablet PO (09:12)
[2019-10-07] MEDS: ibuprofen 200 mg Tablet PO (10:14)
[2019-10-07 10:20] LABS: Glucose Point of Care 225 mg/dL (70-110)
[2019-10-07 10:20] LABS: Glucose Point of Care 157 mg/dL (70-110)
[2019-10-07 10:20] LABS: Glucose Point of Care 50 mg/dL (70-110)
[2019-10-07 12:08] LABS: Glucose Point of Care 249 mg/dL (70-110)
[2019-10-07 14:07] LABS: Glucose Point of Care 233 mg/dL (70-110)
[2019-10-07 15:05] LABS: Glucose Point of Care 240 mg/dL (70-110)
--- NOTE | 2019-10-07 15:10 | PC.NURSE ---
Pt's last three blood sugars have been consistent 200-240mg/dl. Notified Dr Trammell, as pt told this morning possible discharge at 1500. Dr Trammell just retunred call, pt to prepare for discharge..
--- NOTE | 2019-10-07 15:35 | PM.DCS ---
Discharge Providers Date of Admission: 10/06/19 15:41 Date of Discharge: October 07, 2019 Attending Provider at Admission: Pipe Trammell Attending Provider at Discharge: Pipe Trammell Primary Care Provider: Sarahi Nation MD Diagnoses at Discharge Discharge Diagnosis (1) DKA (diabetic ketoacidoses): Status: Acute Qualifiers: Diabetes mellitus complication detail: without coma Diabetes mellitus type: type 1 Qualified Code(s): E10.10 - Type 1 diabetes mellitus with ketoacidosis without coma (2) Chest pain: Status: Acute (3) Alkaline phosphatase elevation: Status: Acute (4) History of biliary stent insertion: Status: Acute (5) Pancreatitis: Status: Resolved (6) Type 1 diabetes: Status: Chronic (7) Cystic fibrosis: Status: Chronic (8) GERD (gastroesophageal reflux disease): Status: Acute Reason for Visit Reason for Visit: Reason For Visit: cp Hospital Course Hospital Course: Pleasant 29-year-old lady with history of cystic fibrosis, DM 1, insulin pump, past history of pancreatitis episode, as well as history of biliary problems with obstruction, needing for stenting, recently reportedly had somewhat more cough, for which she saw her beef skinner, and with some postnasal drainage, which she thought had caused her having some nausea. However, she then had progressive malaise, with worsened nausea in the last several days, and an episode of vomiting yesterday. Subsequently also had a episode of left-sided chest pain, which was burning, to the left of the sternum, left shoulder, which prompted her to come into the ER. There was no evidence of acute OR on troponin or EKG series. Her pain completely resolved without recurrence with treatment in ER. She was, however, noted to be in DKA, with glucose 511, anion gap 30.8, carbon dioxide 16, positive urine and serum ketones. pH 7.27 on ABG. She was tachycardic, heart rate 115. She is saturating 98% on room air. PE/VTE thought to be unlikely, with normal d-dimer. She received treatment with IV hydration, insulin drip, electrolyte replacement, with improvement overnight, and was able to switch over to subcutaneous insulin. She had just recently changed the infusion site for her pump, and the suspicion is that she may have inserted into some scar tissue leading to the current episode of DKA. Her alkaline phosphatase was incidentally found elevated on presentation. On right upper quadrant ultrasound she was found some shadowing which may be consistent with formation of stones. Biliary ducts noted upper limit of normal. Recommend that she follow-up with her gastroenterology specialist. Interestingly GGT is normal. She is feeling much better. She denies any pain or discomfort, and is very eager to be discharged today. Physical Exam Const: COMMON NORMALS: no apparent distress and oriented x3 HENMT: COMMON NORMALS: oropharynx normal Neck/C-Spine: COMMON NORMALS: no JVD Resp: COMMON NORMALS: normal respiratory effort and clear to auscultation bilaterally AUSCULTATION: clear to auscultation bilaterally Cardio: COMMON NORMALS: no JVD, regular rhythm, S1 normal heart sound, S2 normal heart sound and no murmurs RHYTHM: regular rhythm HEART SOUNDS: S1 normal and S2 normal GI: COMMON NORMALS: normal to inspection, nondistended, normoactive bowel sounds, soft to palpation and non-tender PALPATION: Yes soft Extremity: COMMON NORMALS: no joint enlargement and no pedal edema Neuro: COMMON NORMALS: oriented x3 and moves all extremities Skin: COMMON NORMALS: no rashes or lesions noted GENERAL SKIN EXAM: no rashes or lesions noted Discharge Data Data Completed and Pending: Completed Studies During Hospitalization Category Date Time Status XR chest 1V derek ble [id number] Stat Exams 10/06/19 14:26 Completed US gall bladder 7 [id number] Routine Ultrasound 10/07/19 07:00 Completed Pending at discharge Category Date Time Status Complete Blood Co unt w/Auto AM LABS Lab 10/08/19 04:00 Ordered Complete Blood Co unt w/Auto AM LABS Lab 10/09/19 04:00 Ordered Comprehensive Met abolic Panel AM LA BS Lab 10/08/19 04:00 Ordered Comprehensive Met abolic Panel AM LA BS Lab 10/09/19 04:00 Ordered Magnesium AM LABS Lab 10/08/19 04:00 Ordered Magnesium AM LABS Lab 10/09/19 04:00 Ordered Phosphorus AM LAB S Lab 10/08/19 04:00 Ordered Phosphorus AM LAB S Lab 10/09/19 04:00 Ordered Labs from last 24 hours 10/07/19 10/07/19 10/07/19 15:01 13:50 11:53 WBC RBC Hgb Hct MCV MCH MCHC RDW Plt Count MPV Neut % (Auto) Lymph % (Auto) Bates % (Auto) Eos % (Auto) Baso % (Auto) Neut # (Auto) Lymph # (Auto) Bates # (Auto) Eos # (Auto) Baso # (Auto) Nucleated RBC % (a uto) Nucleated RBCs # D-Dimer Sodium Potassium Chloride Carbon Dioxide Anion Gap BUN Creatinine GFR Calculation Glucose POC Glucose 240 233 249 Calculated Osmolal ity Calcium Phosphorus Magnesium Total Bilirubin GGT AST ALT Alkaline Phosphata se Troponin I 6 Hour Troponin I Hi Sens Del Troponin T 120 Min [place] Troponin T Total Protein Albumin Globulin HCG, Qual Urine Color Urine Appearance Urine pH Ur Specific Gravit y Urine Protein Urine Glucose (UA) Urine Ketones Urine Blood Urine Nitrate Urine Bilirubin Urine Urobilinogen Ur Leukocyte Gloria ase 10/07/19 10/07/19 10/07/19 10:16 09:14 08:10 WBC RBC Hgb Hct MCV MCH MCHC RDW Plt Count MPV Neut % (Auto) Lymph % (Auto) Bates % (Auto) Eos % (Auto) Baso % (Auto) Neut # (Auto) Lymph # (Auto) Bates # (Auto) Eos # (Auto) Baso # (Auto) Nucleated RBC % (a uto) Nucleated RBCs # D-Dimer Sodium Potassium Chloride Carbon Dioxide Anion Gap BUN Creatinine GFR Calculation Glucose POC Glucose 225 157 50 Calculated Osmolal ity Calcium Phosphorus Magnesium Total Bilirubin GGT AST ALT Alkaline Phosphata se Troponin I 6 Hour Troponin I Hi Sens Del Troponin T 120 Min [place] Troponin T Total Protein Albumin Globulin HCG, Qual Urine Color Urine Appearance Urine pH Ur Specific Gravit y Urine Protein Urine Glucose (UA) Urine Ketones Urine Blood Urine Nitrate Urine Bilirubin Urine Urobilinogen Ur Leukocyte Gloria ase 10/07/19 10/07/19 10/07/19 07:13 06:13 05:12 WBC RBC Hgb Hct MCV MCH MCHC RDW Plt Count MPV Neut % (Auto) Lymph % (Auto) Bates % (Auto) Eos % (Auto) Baso % (Auto) Neut # (Auto) Lymph # (Auto) Bates # (Auto) Eos # (Auto) Baso # (Auto) Nucleated RBC % (a uto) Nucleated RBCs # D-Dimer Sodium Potassium Chloride Carbon Dioxide Anion Gap BUN Creatinine GFR Calculation Glucose POC Glucose 57 103 152 Calculated Osmolal ity Calcium Phosphorus Magnesium Total Bilirubin GGT AST ALT Alkaline Phosphata se Troponin I 6 Hour Troponin I Hi Sens Del Troponin T 120 Min [place] Troponin T Total Protein Albumin Globulin HCG, Qual Urine Color Urine Appearance Urine pH Ur Specific Gravit y Urine Protein Urine Glucose (UA) Urine Ketones Urine Blood Urine Nitrate Urine Bilirubin Urine Urobilinogen Ur Leukocyte Gloria ase 10/07/19 10/07/19 10/07/19 05:08 05:08 04:06 WBC 16.5 H RBC 3.74 L Hgb 11.1 L Hct 34.0 L MCV 90.9 MCH 29.7 MCHC 32.6 RDW 12.8 Plt Count 381 MPV 9.8 Neut % (Auto) 71.6 Lymph % (Auto) 20.2 Bates % (Auto) 7.2 Eos % (Auto) 0.3 Baso % (Auto) 0.3 Neut # (Auto) 11.8 H Lymph # (Auto) 3.3 Bates # (Auto) 1.2 H Eos # (Auto) 0.1 Baso # (Auto) 0.1 Nucleated RBC % (a uto) 0 Nucleated RBCs # 0.0 D-Dimer Sodium 136 Potassium 3.5 Chloride 104 Carbon Dioxide 21 L Anion Gap 14.5 BUN 20 Creatinine 0.9 GFR Calculation 73.5 L Glucose 171 H POC Glucose 194 Calculated Osmolal ity 283 L Calcium 8.4 L Phosphorus 1.9 L Magnesium 2.1 Total Bilirubin 0.2 GGT AST 14 ALT 9 Alkaline Phosphata se 121 H Troponin I 6 Hour Troponin I Hi Sens Del Troponin T 120 Min [place] Troponin T Total Protein 6.5 L D Albumin 3.4 L Globulin 3.1 HCG, Qual Urine Color Urine Appearance Urine pH Ur Specific Gravit y Urine Protein Urine Glucose (UA) Urine Ketones Urine Blood Urine Nitrate Urine Bilirubin Urine Urobilinogen Ur Leukocyte Gloria ase 10/07/19 10/07/19 10/07/19 03:17 01:55 01:25 WBC RBC Hgb Hct MCV MCH MCHC RDW Plt Count MPV Neut % (Auto) Lymph % (Auto) Bates % (Auto) Eos % (Auto) Baso % (Auto) Neut # (Auto) Lymph # (Auto) Bates # (Auto) Eos # (Auto) Baso # (Auto) Nucleated RBC % (a uto) Nucleated RBCs # D-Dimer Sodium Potassium Chloride Carbon Dioxide Anion Gap BUN Creatinine GFR Calculation Glucose POC Glucose 210 239 249 Calculated Osmolal ity Calcium Phosphorus Magnesium Total Bilirubin GGT AST ALT Alkaline Phosphata se Troponin I 6 Hour Troponin I Hi Sens Del Troponin T 120 Min [place] Troponin T Total Protein Albumin Globulin HCG, Qual Urine Color Urine Appearance Urine pH Ur Specific Gravit y Urine Protein Urine Glucose (UA) Urine Ketones Urine Blood Urine Nitrate Urine Bilirubin Urine Urobilinogen Ur Leukocyte Gloria ase 10/06/19 10/06/19 10/06/19 23:40 22:33 21:21 WBC RBC Hgb Hct MCV MCH MCHC RDW Plt Count MPV Neut % (Auto) Lymph % (Auto) Bates % (Auto) Eos % (Auto) Baso % (Auto) Neut # (Auto) Lymph # (Auto) Bates # (Auto) Eos # (Auto) Baso # (Auto) Nucleated RBC % (a uto) Nucleated RBCs # D-Dimer Sodium Potassium Chloride Carbon Dioxide Anion Gap BUN Creatinine GFR Calculation Glucose POC Glucose 173 105 85 Calculated Osmolal ity Calcium Phosphorus Magnesium Total Bilirubin GGT AST ALT Alkaline Phosphata se Troponin I 6 Hour Troponin I Hi Sens Del Troponin T 120 Min [place] Troponin T Total Protein Albumin Globulin HCG, Qual Urine Color Urine Appearance Urine pH Ur Specific Gravit y Urine Protein Urine Glucose (UA) Urine Ketones Urine Blood Urine Nitrate Urine Bilirubin Urine Urobilinogen Ur Leukocyte Gloria ase 10/06/19 10/06/19 10/06/19 21:03 21:03 20:02 WBC RBC Hgb Hct MCV MCH MCHC RDW Plt Count MPV Neut % (Auto) Lymph % (Auto) Bates % (Auto) Eos % (Auto) Baso % (Auto) Neut # (Auto) Lymph # (Auto) Bates # (Auto) Eos # (Auto) Baso # (Auto) Nucleated RBC % (a uto) Nucleated RBCs # D-Dimer Sodium 139 Potassium 4.0 Chloride 104 Carbon Dioxide 21 L Anion Gap 18.0 BUN 20 Creatinine 0.9 GFR Calculation 73.5 L Glucose 119 H POC Glucose 141 Calculated Osmolal ity 286 Calcium 9.1 Phosphorus Magnesium Total Bilirubin GGT AST ALT Alkaline Phosphata se Troponin I 6 Hour 10.00 Troponin I Hi Sens Del 4.00 Troponin T 120 Min [place] Troponin T Total Protein Albumin Globulin HCG, Qual Urine Color Urine Appearance Urine pH Ur Specific Gravit y Urine Protein Urine Glucose (UA) Urine Ketones Urine Blood Urine Nitrate Urine Bilirubin Urine Urobilinogen Ur Leukocyte Gloria ase 10/06/19 10/06/19 10/06/19 18:57 18:03 17:20 WBC RBC Hgb Hct MCV MCH MCHC RDW Plt Count MPV Neut % (Auto) Lymph % (Auto) Bates % (Auto) Eos % (Auto) Baso % (Auto) Neut # (Auto) Lymph # (Auto) Bates # (Auto) Eos # (Auto) Baso # (Auto) Nucleated RBC % (a uto) Nucleated RBCs # D-Dimer Sodium Potassium Chloride Carbon Dioxide Anion Gap BUN Creatinine GFR Calculation Glucose POC Glucose 238 373 Calculated Osmolal ity Calcium Phosphorus Magnesium Total Bilirubin GGT AST ALT Alkaline Phosphata se Troponin I 6 Hour Troponin I Hi Sens Del Troponin T 120 Min [place] Troponin T 1.15 Total Protein Albumin Globulin HCG, Qual Urine Color Urine Appearance Urine pH Ur Specific Gravit y Urine Protein Urine Glucose (UA) Urine Ketones Urine Blood Urine Nitrate Urine Bilirubin Urine Urobilinogen Ur Leukocyte Gloria ase 10/06/19 10/06/19 10/06/19 17:13 17:10 17:10 WBC RBC Hgb Hct MCV MCH MCHC RDW Plt Count MPV Neut % (Auto) Lymph % (Auto) [place] % (Auto) Eos % (Auto) Baso % (Auto) Neut # (Auto) Lymph # (Auto) Bates # (Auto) Eos # (Auto) Baso # (Auto) Nucleated RBC % (a uto) Nucleated RBCs # D-Dimer Sodium Potassium Chloride Carbon Dioxide Anion Gap BUN Creatinine GFR Calculation Glucose POC Glucose 458 Calculated Osmolal ity Calcium Phosphorus Magnesium Total Bilirubin GGT AST ALT Alkaline Phosphata se Troponin I 6 Hour Troponin I Hi Sens Del Troponin T 120 Min [place] Troponin T Total Protein Albumin Globulin HCG, Qual Negative Urine Color Yellow Urine Appearance Clear Urine pH 5 Ur Specific Gravit y 1.015 Urine Protein Neg Urine Glucose (UA) 4+ H Urine Ketones 2+ H Urine Blood Neg Urine Nitrate Negative Urine Bilirubin Neg Urine Urobilinogen Norm Ur Leukocyte Gloria ase Negative 10/06/19 10/06/19 10/06/19 14:46 14:46 14:46 WBC RBC Hgb Hct MCV MCH MCHC RDW Plt Count MPV Neut % (Auto) Lymph % (Auto) Bates % (Auto) Eos % (Auto) Baso % (Auto) Neut # (Auto) Lymph # (Auto) Bates # (Auto) Eos # (Auto) Baso # (Auto) Nucleated RBC % (a uto) Nucleated RBCs # D-Dimer <= 0.27 Sodium Potassium Chloride Carbon Dioxide Anion Gap BUN Creatinine GFR Calculation Glucose POC Glucose Calculated Osmolal ity Calcium Phosphorus 3.7 Magnesium 2.2 Total Bilirubin GGT 10 AST ALT Alkaline Phosphata se Troponin I 6 Hour Troponin I Hi Sens Del Troponin T 120 Min [place] Troponin T Total Protein Albumin Globulin HCG, Qual Urine Color Urine Appearance Urine pH Ur Specific Gravit y Urine Protein Urine Glucose (UA) Urine Ketones Urine Blood Urine Nitrate Urine Bilirubin Urine Urobilinogen Ur Leukocyte Gloria ase Vitals: Last Vital Signs Temp 98.5 F 10/07/19 15: Pulse 76 10/07/19 15: Resp 20 H 10/07/19 15:19 BP 121/70 10/07/19 15:19 Pulse Ox 99 10/07/19 15:19 Discharge Plan Discharge Patient Disposition: Home, Self-Care Condition: Stable Prescriptions: New Lantus Solostar U-100 Insulin 100 unit/mL (3 mL) insulin pen 10 unit SUBCUT .Night Qty: 15 RF: 0 insulin lispro [Humalog KwikPen Insulin] 100 unit/mL insulin pen See Rx Instructions .ROUTE .COMPLEX Qty: 15 RF: 0 Continued levalbuterol HCl 0.63 mg/3 mL solution for nebulization 0.63 mg INHALATION DAILY RF: 0 Novolog U-100 Insulin aspart 100 unit/mL solution See Rx Instructions .ROUTE .COMPLEX RF: 0 ursodiol 300 mg capsule 300 mg PO DAILY RF: 0 gabapentin 300 mg capsule See Rx Instructions .ROUTE .COMPLEX RF: 0 omeprazole 20 mg capsule,delayed release(DR/EC) 40 mg PO DAILY RF: 0 azithromycin 500 mg tablet 500 mg PO DAILY RF: 0 Creon 24,000-76,000 -120,000 unit capsule,delayed release(DR/EC) See Rx Instructions .ROUTE .COMPLEX RF: 0 Trikafta 100-50-75 mg(d) /150 mg (n) tablets, sequential 1 ea PO DAILY RF: 0 Discharge Orders: Discharge Order (Routine); Ordered 10/07/19 Ordered By: Pipe Trammell Referrals: Your, supply chain intern [Other] - 1 week Your, tailings dam laborer [Other] - 2 weeks (Alk phos elevation, cholelithiasis, upper normal bile duct) Sarahi Nation MD [Primary Care Provider] - 4-7 days (Please, call for an follow-up appointment with Sarahi Nation M.D. in 4 to 7 days. ) Discharge Diet: Diabetic and Low Fat Discharge Activity: Increase activity as tolerated Patient Instructions: Insulin Lispro (Injection), Diabetic Ketoacidosis (DC) Activity Restrictions/Additional Instructions: Continue diet as recommended per your senior occupational therapist. If you are unable to replace your pump infusion site, or there is other pump malfunction, please contact your supply chain intern as soon as possible. Please also in the meantime fill prescription for Lantus 10 units, as well as insulin sliding scale before meals and at bedtime. Continue to monitor glucose. Avoid dehydration. If you start feeling unwell, spiking fevers, having vomiting, chest pain, or other abnormal symptoms, please seek medical attention without delay. Your alkaline phosphatase was noted incidentally elevated. Ultrasound of your gallbladder showed some shadowing which may be suggestive of stone formation. Bile ducts are upper normal limit for size. Please discuss with your tailings dam laborer. Discharge Attestations Time Spent in Discharge Care*: greater than 30 min Quality Metrics Clinical Quality Measures During this hospital stay, did patient experience: None Coding Level of Care Code Acute Practical Nursing Teacher for Chg Fwd Diagnoses DKA (diabetic ketoacidoses) E10.10 Diabetes mellitus complication detail: without coma Diabetes mellitus type: type 1 Chest pain R07.9 Alkaline phosphatase elevation R74.8 History of biliary stent insertion Z98.890 Pancreatitis K85.90 Type 1 diabetes E10.9 Cystic fibrosis E84.9 GERD (gastroesophageal reflux disease) K21.9
--- NOTE | 2019-10-07 16:11 | PC.NURSE ---
Discharge orders provided and discussed. Pt declined going over care notes, stated she will read them at home. Prescriptions fxed to [place] [facility], pt to knot picker cloth tomorrow if needed. Pt stated she had insulins and rescue meds if her insulin pump stops or is not functioning correctly. Pt very knowledgeable about her CF and Diabetes. Pt discharged home.
--- NOTE | 2019-10-08 08:53 | PC.SOCIAL ---
pharmacy sent [place] due to Humalog and Lantus not being on formulary. Call placed to pharmacy and Levemir is preferred to Lantus and Novolog is preferred to Humalog. Reviewed with Dr Trammell and pharmacy notified okay to change to the formulary meds with same dosing instructions with the pens.
--- NOTE | 2019-11-02 17:12 | PC.SOCIAL ---
Notified pharmacy can do vials not pens for new insulin
== END 2019-10-07 16:04 | disposition home or self-care (01) | DRG 919 ==
LOC: ER 14:19 → ICU 15:52
PROVIDERS: Internal Medicine; Physician Assistant; Admitting Provider Internal Medicine; Emergency Provider Family Medicine; PCP Family Medicine; Visit Provider Internal Medicine
DX: T85.898A Other specified complication of other internal prosthetic devices, implants and grafts, initial encounter (principal); E10.10 Type 1 diabetes mellitus with ketoacidosis without coma; K85.90 Acute pancreatitis without necrosis or infection, unspecified; E84.9 Cystic fibrosis, unspecified; K21.9 Gastro-esophageal reflux disease without esophagitis; Z96.89 Presence of other specified functional implants; Z96.41 Presence of insulin pump (external) (internal); Y84.8 Other medical procedures as the cause of abnormal reaction of the patient, or of later complication, without mention of misadventure at the time of the procedure; Y92.009 Unspecified place in unspecified non-institutional (private) residence as the place of occurrence of the external cause; F41.8 Other specified anxiety disorders
CPT/HCPCS: 12345; 36415; 36416; 36600; 71045; 76705; 80048; 80053; 81003; 81025; 82009; 82803; 82962; 82977; 83690; 83735; 84100; 84484; 85025; 85378; 85610; 93005; 94640; 96372; 96375; 99283; J1650; J1815; J2270; J2405; J3480; J7030; J7050; J7614; J7799

== ENCOUNTER 2019-11-05 15:13 | Outpatient (CLI) | payer MEDICARE, MEDICAID, SELFPAY ==
[2019-11-05 15:49] LABS: Basophils # 0.1 10^3/uL (0.0-0.1); Basophils % 1.8 %; Eosinophils # 0.3 10^3/uL (0.0-0.8); Eosinophils % 3.4 %; Hematocrit 34.5 % (37.0-47.0); Hemoglobin 11.1 g/dL (11.5-15.3); Lymphocytes # 1.7 10^3/uL (0.8-4.8); Mean Corpuscular HGB Conc 32.2 g/dL (30.0-36.0); Mean Corpuscular Hemoglobin 30.3 pg (28.0-34.0); Mean Corpuscular Volume 94.3 fL (81-99); Mean Platelet Volume 10.1 fL (7.4-10.4); Monocytes # 0.7 10^3/uL (0.2-0.9); Monocytes % 9.6 %; Neutrophils # 4.5 10^3/uL (1.8-7.7); Neutrophils % 61.9 %; Nucleated Red Blood Cells % 0 %; Platelet Count 344 10^3/cmm (130-400); Red Blood Count 3.66 10^6/uL (4.1-5.3); Red Cell Distribution Width 12.3 % (12.1-15.1); White Blood Count 7.3 10^3/uL (4.0-10.0)
[2019-11-05 16:15] LABS: Alanine Aminotransferase 9 U/L (0-33); Albumin Level 3.5 g/dL (3.5-5.2); Alkaline Phosphatase 127 IU/L (35-105); Anion Gap 14.2 (5-19); Blood Urea Nitrogen 14 mg/dL (6-20); Carbon Dioxide 26 mmol/L (22-29); Chloride 99 mmol/L (98-107); Globulin 3.7 g/dL (1.3-4.6); Glomerular Filtration Rate 65.1 mL/min (90-130); Glucose 315 mg/dL (65-115); Osmolality Calculated 286 mOsm/kg (285-295); Potassium 5.2 mmol/L (3.5-5.1); Sodium 134 mmol/L (136-145); Total Bilirubin 0.2 mg/dL (0.15-1.2); Total Protein 7.2 g/dL (6.6-8.7)
[2019-11-05 16:58] LABS: Aspartate Amino Transferase 18 U/L (0-32)
== END 2019-11-05 15:14 | disposition home or self-care (01) ==
PROVIDERS: PCP Family Medicine; Visit Provider Internal Medicine Pulmonary Disease
DX: E84.9 Cystic fibrosis, unspecified (principal)
CPT/HCPCS: 80053; 85025

== ENCOUNTER → 2021-02-04 11:51 | Outpatient (BNVA) | payer MEDICARE, MEDICAID, SELFPAY | PROVIDERS: PCP Family Medicine; Visit Provider Emergency Medicine | DX: R11.2 Nausea with vomiting, unspecified (principal); R68.89 Other general symptoms and signs; R11.0 Nausea; K52.9 Noninfective gastroenteritis and colitis, unspecified; Z79.899 Other long term (current) drug therapy; Z20.822 Contact with and (suspected) exposure to COVID-19 | CPT/HCPCS: 80053; 87635 ==

== ENCOUNTER → 2021-03-18 12:02 | Outpatient (BNVA) | payer MEDICARE, MEDICAID, SELFPAY | PROVIDERS: PCP Family Medicine; Visit Provider Registered Nurse | DX: Z79.899 Other long term (current) drug therapy (principal) | CPT/HCPCS: 36415; 80053; 80061; 83036 ==

== ENCOUNTER 2021-09-15 21:12 | Emergency (ER) | payer MEDICARE, MEDICAID, SELFPAY ==
[2021-09-15 21:23] VITALS: BP 126/80; PULSE 99; RESP 20; TEMP 37.2; O2SAT 96; BMI 14.6
[2021-09-15 21:40] LABS: Glucose Point of Care 104 mg/dL (70-110)
--- NOTE | 2021-09-15 21:47 | W.ED.WEAKNES ---
HPI - Weakness General: Chief complaint: Weakness Stated complaint: feels like DKA Time Seen by Provider: 09/15/21 21:46 History of Present Illness: 31-year-old female comes in today with complaints of nausea and vomiting and elevated blood glucose. Patient reports that she started having some problems with her insulin pump on Tuesday evening and was not able to get it reaccessed and tell this morning. His blood glucose has been as high as 400. Patient had some nausea and some vomiting today. And was concerned that she may have diabetic ketoacidosis. Patient appears mildly unwell but not toxic. Patient does appear to be dehydrated. Patient has a history of diabetes type 1, cystic fibrosis, and major depressive disorder. Associated symptoms: Reports headache(s), nausea and vomiting; Denies chest pain Review of Systems General: Reports: 10 or more systems reviewed and unremarkable except in HPI and below Card: Denies: chest pain Resp: Denies: dyspnea GI: Reports: nausea and vomiting; Denies: diarrhea : Denies: difficulty voiding Skin/Breast: Denies: rash Neuro: Reports: headache(s) PFS ED PFSH: Medical History Anxiety Chronic post-traumatic stress disorder Cystic fibrosis Depression Generalized anxiety disorder GERD (gastroesophageal reflux disease) Major depressive disorder, recurrent, moderate Psychiatric care Type 1 diabetes Surgical History History of biliary stent insertion Family History Sister Leukemia Sister , at 26 yo Cystic fibrosis Social History Smoking and tobacco status: never smoked Alcohol intake: never Lives independently: Yes Marital status: Current occupational status: disabled Current gender identity: Female Female Reproductive History: Date of last menstrual period: 10/04/19 Physical Exam Const: COMMON NORMALS: alert HENMT: MOUTH: Abnormal oral and palatal mucosa present (Dry) Neck/C-Spine: GENERAL: Yes normal visual inspection Resp: COMMON NORMALS: normal respiratory effort and clear to auscultation bilaterally AUSCULTATION: clear to auscultation bilaterally Cardio: COMMON NORMALS: regular rate and regular rhythm RATE: regular rate RHYTHM: regular rhythm GI: COMMON NORMALS: Soft to palpation AUSCULTATION: Yes normoactive bowel sounds PALPATION: Yes Soft to palpation and No Tenderness to palpation present (GI) Extremity: COMMON NORMALS: normal to inspection Neuro: SENSORIUM/ORIENTATION: Yes alert Skin: COMMON NORMALS: no rashes or lesions noted GENERAL SKIN EXAM: no rashes or lesions noted Course Vital Signs: Vital signs: Vital Signs Temperature 98.9 F 09/15/21 21:23 Pulse Rate 82 09/15/21 23:25 Respiratory Rate 18 09/15/21 23:25 Blood Pressure 122/77 09/15/21 23:25 Pulse Oximetry 96 09/15/21 23:25 MDM - Weakness Medical Decision Making Patient comes in today for complaints of 2-day history of nausea and vomiting. Patient first thought it was because her insulin pump was acting up. Patient has spiked a sugar as high as 400. On exam abdomen soft nontender. Skin is warm and dry. Oral mucosa was dry. Differential diagnosis includes diabetic ketoacidosis, dehydration, UTI, gastroenteritis. Laboratory values indicated elevation in white blood cells at 22,000, potassium was 3.1, creatinine was 1.0, urine was positive for nitrates and white blood cells. Ketones was negative and ABG was unremarkable. Patient had dehydration most likely secondary to a urinary tract infection. Patient was hydrated with 1 L of IV fluids was able to tolerate oral fluids. Patient was given 1 g Rocephin IV. Patient will be continued to encourage fluids, cephalexin for antibiotic, Zofran for nausea, and some potassium for potassium replacement. Patient reported understanding of care plan and need for follow-up or return to the ER. Lab Data : 09/15/21 22:04 09/15/21 23:15 Laboratory Results WBC 22.5 10^3/uL (4.0-10.0) H 09/15/21 22:04 RBC 5.03 10^6/uL (4.1-5.3) 09/15/21 22:04 Hgb 14.9 g/dL (11.5-15.3) 09/15/21 22:04 Hct 44.0 % (37.0-47.0) 09/15/21 22:04 MCV 87.5 fl (81-99) 09/15/21 22:04 MCH 29.6 pg (28.0-34.0) 09/15/21 22:04 MCHC 33.9 g/dL (30.0-36.0) 09/15/21 22:04 RDW 13.3 % (12.1-15.1) 09/15/21 22:04 Plt Count 443 10^3/cmm (130-400) H 09/15/21 22:04 MPV 10.8 fL (7.4-10.4) H 09/15/21 22:04 Neut % (Auto) 79.3 % 09/15/21 22:04 Lymph % (Auto) 12.3 % 09/15/21 22:04 [place] % (Auto) 7.8 % 09/15/21 22:04 Eos % (Auto) 0.0 % 09/15/21 22:04 Baso % (Auto) 0.2 % 09/15/21 22:04 Neut # (Auto) 17.85 10^3/uL (1.8-7.7) H 09/15/21 22:04 Lymph # (Auto) 2.8 10^3/uL (0.8-4.8) 09/15/21 22:04 [place] # (Auto) 1.8 10^3/uL (0.2-0.9) H 09/15/21 22:04 Eos # (Auto) 0.0 10^3/uL (0.0-0.8) 09/15/21 22:04 Baso # (Auto) 0.1 10^3/uL (0.0-0.1) 09/15/21 22:04 Nucleated RBC % (auto) 0 % 09/15/21 22:04 Nucleated RBCs # 0.0 /100WBC 09/15/21 22:04 Sodium 136 mmol/L (136-145) 09/15/21 23:15 Potassium 3.1 mmol/L (3.5-5.1) L 09/15/21 23:15 Chloride 100 mmol/L (98-107) 09/15/21 23:15 Carbon Dioxide 23 mmol/L (22-29) 09/15/21 23:15 Anion Gap 16.1 (5-19) 09/15/21 23:15 BUN 28 mg/dL (6-20) H 09/15/21 23:15 Creatinine 1.0 mg/dL (0.5-0.9) H 09/15/21 23:15 GFR Calculation 64.3 mL/min (90-130) L 09/15/21 23:15 Glucose 81 mg/dL (65-115) 09/15/21 23:15 POC Glucose 104 mg/dL (70-110) 09/15/21 21:35 Calculated Osmolality 287 mOsm/kg (285-295) 09/15/21 23:15 Calcium 8.9 mg/dL (8.5-10.5) 09/15/21 23:15 Total Bilirubin 0.2 mg/dL (0.15-1.2) 09/15/21 23:15 AST 36 U/L (0-32) H 09/15/21 23:15 ALT 23 U/L (0-33) 09/15/21 23:15 Alkaline Phosphatase 113 IU/L (35-105) H 09/15/21 23:15 Total Protein 7.1 g/dL (6.6-8.7) 09/15/21 23:15 Albumin 3.7 g/dL (3.5-5.2) 09/15/21 23:15 Globulin 3.4 g/dL (1.3-4.6) 09/15/21 23:15 Lipase 4 U/L (13-60) L 09/15/21 23:15 HCG, Qual Negative (Negative) 09/15/21 23:15 Urine Color Yellow (Yellow) 09/15/21 22:04 Urine Appearance Cloudy (CLEAR) 09/15/21 22:04 Urine pH 5 (5-7) 09/15/21 22:04 Ur Specific [place] 1.020 (1.005-1.030) 09/15/21 22:04 Urine Protein Trace (Negative) 09/15/21 22:04 Urine Glucose (UA) Norm (Normal) 09/15/21 22:04 Urine Ketones 1+ (Negative) H 09/15/21 22:04 Urine Blood 3+ (Negative) H 09/15/21 22:04 Urine Nitrate Positive (Negative) H 09/15/21 22:04 Urine Bilirubin Neg (Negative) 09/15/21 22:04 Urine Urobilinogen Norm mg/dL (Negative) 09/15/21 22:04 Ur Leukocyte Esterase 2+ (Negative) H 09/15/21 22:04 Urine RBC 5-10 /hpf (0-2) H 09/15/21 22:04 Urine WBC 55-80 /hpf (0-5) H 09/15/21 22:04 Ur Squamous Epith Cells 10-15 /hpf (0-5) H 09/15/21 22:04 Amorphous Sediment Not Reportable 09/15/21 22:04 Urine Bacteria 4+ /hpf (NONE) H 09/15/21 22:04 Urine Mucus 1+ /hpf 09/15/21 22:04 Serum Ketones Negative (Negative) 09/15/21 23:15 Discharge Plan Discharge Patient Disposition: Home Clinical Impression: Acute dehydration UTI (urinary tract infection) Qualifiers: Urinary tract infection type: acute cystitis Hematuria presence: without hematuria Qualified Code(s): N30.00 - Acute cystitis without hematuria Nausea & vomiting Qualifiers: Vomiting type: unspecified Qualified Code(s): R11.2 - Nausea with vomiting, unspecified Condition: Stable Prescriptions: New potassium chloride 10 mEq tablet extended release 10 meq PO BID Qty: 10 0RF ondansetron 4 mg tablet,disintegrating 4 mg PO Q8H PRN (Reason: nausea and vomiting) Qty: 7 0RF cephalexin 500 mg capsule 500 mg PO BID 5 Days Qty: 10 0RF No Action Rexulti 3 mg tablet 3 mg PO DAILY Qty: 30 2RF mirtazapine 30 mg tablet See Rx Instructions .ROUTE .COMPLEX Qty: 30 2RF Dose Instruction: TAKE 1 TABLET BY MOUTH AT BEDTIME Rx Instructions: TAKE 1 TABLET BY MOUTH AT BEDTIME trazodone 50 mg tablet 50 mg PO .at bedtime Qty: 30 2RF Rx Instructions: 1/2-1 tab at bedtime levalbuterol HCl 0.63 mg/3 mL solution for nebulization 0.63 mg INHALATION DAILY 0RF Novolog U-100 Insulin aspart 100 unit/mL solution See Rx Instructions .ROUTE .COMPLEX 0RF Rx Instructions: PT STATES SHE IS ON AN INSULIN PUMP. ursodiol 300 mg capsule 300 mg PO DAILY 0RF gabapentin 300 mg capsule See Rx Instructions .ROUTE .COMPLEX 0RF Rx Instructions: PT STATES SHE TAKES 1 TABS IN THE MORNING, 1 TAB IN THE AFTERNOON, AND 2 TABS AT NIGHT omeprazole 20 mg capsule,delayed release(DR/EC) 40 mg PO DAILY 0RF azithromycin 500 mg tablet 500 mg PO DAILY 0RF Creon 24,000-76,000 -120,000 unit capsule,delayed release(DR/EC) See Rx Instructions .ROUTE .COMPLEX 0RF Rx Instructions: orally PT STATES SHE TAKES 2 TABS WITH MEALS AND 2 TABS WITH SNACKS. Trikafta 100-50-75 mg(d) /150 mg (n) tablets, sequential 1 ea PO DAILY 0RF Discharge Orders: Discharge ED (Routine); Ordered 09/16/21 Ordered By: Anthony Monge Referrals: Sarahi Nation MD [Primary Care Provider] - Discharge Diet: Advance as tolerated Discharge Activity: Increase activity as tolerated Patient Instructions: Dehydration (ED) Activity Restrictions/Additional Instructions: Home and rest. Continue drinking plenty of fluids. Activity as tolerated. Continue routine medications and treatment as directed. Follow-up with primary care. Return to ER for new concerns. Coding Level of Care Code ED Human Resources Records Clerk for Bella Fwjada Exam Comprehensive
[2021-09-15 22:16] LABS: Basophils # 0.1 10^3/uL (0.0-0.1); Basophils % 0.2 %; Hemoglobin 14.9 g/dL (11.5-15.3); Lymphocytes # 2.8 10^3/uL (0.8-4.8); Lymphocytes % 12.3 %; Mean Corpuscular HGB Conc 33.9 g/dL (30.0-36.0); Mean Corpuscular Hemoglobin 29.6 pg (28.0-34.0); Mean Corpuscular Volume 87.5 fl (81-99); Mean Platelet Volume 10.8 fL (7.4-10.4); Monocytes # 1.8 10^3/uL (0.2-0.9); Monocytes % 7.8 %; Neutrophils # 17.85 10^3/uL (1.8-7.7); Neutrophils % 79.3 %; Nucleated Red Blood Cells % 0 %; Platelet Count 443 10^3/cmm (130-400); Red Blood Count 5.03 10^6/uL (4.1-5.3); Red Cell Distribution Width 13.3 % (12.1-15.1); White Blood Count 22.5 10^3/uL (4.0-10.0)
[2021-09-15] MEDS: sodium chloride 0.9% 1,000 ML 999 ML IV (22:16)
[2021-09-15 22:31] LABS: Bilirubin Urine Neg (Negative); Blood Urine 3+ (Negative); Glucose Urine UA Norm (Normal); Ketones Urine 1+ (Negative); Nitrate Urine Positive (Negative); Protein Urine Trace (Negative); Urine Appearance Cloudy (CLEAR); Urine Color Yellow (Yellow); pH Urine 5 (5-7)
[2021-09-15 22:32] LABS: Add Urine Microscopic? YES; Leukocyte Esterase Urine 2+ (Negative); Urobilinogen Urine Norm (Negative)
[2021-09-15 22:36] LABS: Add Urine Culture? No; Bacteria Urine 4+ /hpf; Mucus Urine 1+ /hpf; WBC Urine 55-80 /hpf (0-5)
[2021-09-15] MEDS: metoclopramide 5 mg/mL SDV 2 mL 10 MG IVP (22:37)
[2021-09-15] MEDS: diphenhydrAMINE 50 mg/mL SDV 1mL 25 MG IVP (22:37)
[2021-09-15] MEDS: cefTRIAXone 1,000 MG in sodium chloride 0.9% (plus) 50 ML 100 MG IV (23:18)
[2021-09-15 23:25] VITALS: BP 122/77; PULSE 82; RESP 18; O2SAT 96
[2021-09-15 23:49] LABS: Alanine Aminotransferase 23 U/L (0-33); Albumin Level 3.7 g/dL (3.5-5.2); Alkaline Phosphatase 113 IU/L (35-105); Anion Gap 16.1 (5-19); Aspartate Amino Transferase 36 U/L (0-32); Blood Urea Nitrogen 28 mg/dL (6-20); Calcium 8.9 mg/dL (8.5-10.5); Carbon Dioxide 23 mmol/L (22-29); Chloride 100 mmol/L (98-107); Globulin 3.4 g/dL (1.3-4.6); Glomerular Filtration Rate 64.3 mL/min (90-130); Glucose 81 mg/dL (65-115); Lipase 4 U/L (13-60); Osmolality Calculated 287 mOsm/kg (285-295); Potassium 3.1 mmol/L (3.5-5.1); Sodium 136 mmol/L (136-145); Total Bilirubin 0.2 mg/dL (0.15-1.2); Total Protein 7.1 g/dL (6.6-8.7)
[2021-09-15 23:55] LABS: HCG, Serum Qual Negative (Negative); Ketone (Acetest) Serum Negative (Negative)
== END 2021-09-16 00:31 | disposition home or self-care (01) ==
PROVIDERS: Emergency Medicine; Emergency Provider Nurse Practitioner Family; PCP Family Medicine
DX: N30.00 Acute cystitis without hematuria (principal); R11.2 Nausea with vomiting, unspecified; E10.9 Type 1 diabetes mellitus without complications
CPT/HCPCS: 36416; 36600; 80053; 81001; 82009; 82803; 82962; 83690; 84703; 85025; 96365; 96375; 99283; J0696; J1200; J2765; J7030

== ENCOUNTER 2022-11-09 16:16 | Emergency (ER) | payer MEDICARE, MEDICAID, SELFPAY ==
[2022-11-09 16:25] VITALS: BP 133/87; PULSE 88; RESP 14; TEMP 36.8; O2SAT 96; BMI 21.7
[2022-11-09 18:48] LABS: Basophils % 0.2 %; Hematocrit 45.8 % (37.0-47.0); Hemoglobin 15.3 g/dL (11.5-15.3); Lymphocytes # 1.4 10^3/uL (0.8-4.8); Lymphocytes % 15.6 %; Mean Corpuscular HGB Conc 33.4 g/dL (30.0-36.0); Mean Corpuscular Hemoglobin 30.4 pg (28.0-34.0); Mean Corpuscular Volume 91.1 fl (81-99); Mean Platelet Volume 9.7 fL (7.4-10.4); Monocytes # 1.1 10^3/uL (0.2-0.9); Monocytes % 12.8 %; Neutrophils # 6.36 10^3/uL (1.8-7.7); Neutrophils % 71.2 %; Nucleated Red Blood Cells % 0 %; Platelet Count 251 10^3/cmm (130-400); Red Blood Count 5.03 10^6/uL (4.1-5.3); Red Cell Distribution Width 13.2 % (12.1-15.1); White Blood Count 8.9 10^3/uL (4.0-10.0)
--- NOTE | 2022-11-09 18:48 | ED_ITS ---
HPI - Nausea/Vomiting/Diarrhea General: Chief complaint: Nausea/Vomiting/Diarrhea Stated complaint: n/v Time Seen by Provider: 11/09/22 18:34 Source: patient Mode of arrival: ambulatory Limitations: no limitations History of Present Illness: 32-year-old female who type I diabetic states she been having sinus pain for last 2 to 3 days Meena sinus patient states stationary having nausea vomiting states she is concerned that she is getting dehydrated her blood sugars been running normal its currently 223 on her monitor. She denies any diarrhea denies any pain anywhere. Associated nausea: Yes Associated symtoms: Reports nausea; Denies chest pain, dysuria or headache(s) Review of Systems Const: Denies: fever(s), chills, body aches or change in appetite Eyes: Denies: blurry vision or eye discomfort ENMT: Reports: nasal congestion and sinus pain; Denies: throat pain or dental pain Card: Denies: chest pain Resp: Denies: dyspnea GI: Reports: nausea and vomiting; Denies: abdominal pain or diarrhea : Denies: dysuria Musc: Denies: neck pain or back pain Skin/Breast: Denies: rash Neuro: Denies: headache(s) PFSH ED PFSH: Medical History Anxiety Chronic post-traumatic stress disorder Cystic fibrosis Depression Generalized anxiety disorder GERD (gastroesophageal reflux disease) Major depressive disorder, recurrent, moderate Psychiatric care Type 1 diabetes Surgical History History of biliary stent insertion Family History Sister Leukemia Sister , at 26 yo Cystic fibrosis Social History Smoking and tobacco status: never smoked Alcohol intake: never Substance/Drug Use: never Lives independently: Yes Marital status: Current occupational status: disabled Current gender identity: Female Physical Exam Const: COMMON NORMALS: no acute distress, patient oriented x3 and healthy appearing HENMT: COMMON NORMALS: normocephalic and atraumatic HEAD & SCALP: nor mocephalic and atraumatic Eye: COMMON NORMALS: conjunctivae normal CONJUNCTIVA: Yes conjunctivae normal Neck/C-Spine: COMMON NORMALS: full ROM and supple Chest: COMMONS NORMALS: normal inspection of the chest and normal palpation of entire chest wall Resp: COMMON NORMALS: normal respiratory effort, No retractions, No use of accessory muscles and clear to auscultation bilaterally AUSCULTATION: clear to auscultation bilaterally Cardio: COMMON NORMALS: regular rate, regular rhythm and No murmurs present (Cardio) RATE: regular rate RHYTHM: regular rhythm GI: COMMON NORMALS: Normal to inspection, nondistended, normoactive bowel sounds present, Soft to palpation, non-tender and no masses PALPATION: Yes Soft to palpation Extremity: COMMON NORMALS: normal to inspection and full ROM Neuro: COMMON NORMALS: patient oriented x3, moves all extremities and no focal motor deficits Psych: COMMON NORMALS: mental status grossly normal, Normal thought process present and cooperative THOUGHT PROCESS: Normal thought process present Skin: COMMON NORMALS: no rashes or lesions noted and no wounds GENERAL SKIN EXAM: no rashes or lesions noted Course Vital Signs: Vital signs: Vital Signs Temperature 98.2 F 11/09/22 16:25 Pulse Rate 96 11/09/22 21:35 Respiratory Rate 16 11/09/22 21:35 Blood Pressure 98/80 11/09/22 21:35 Pulse Oximetry 99 11/09/22 21:35 Oxygen Delivery Me thod Room Air 11/09/22 19:42 MDM - Nausea/Vomiting/Diarrhea Medical Decision Making Patient presents here with vomiting along with likely sinus infection she feels much improved after fluids and Zofran she has had no vomiting. She been able tolerate p.o. here we will start her on Augmentin along with Zofran she has no signs of DKA her glucose here is improved as well. Medical Records I reviewed the patient's medical records. Lab Data I reviewed the patient's lab results. 11/09/22 18:30 11/09/22 18:30 Laboratory Results WBC 8.9 10^3/uL (4.0-10.0) 11/09/22 18:30 RBC 5.03 10^6/uL (4.1-5.3) 11/09/22 18:30 Hgb 15.3 g/dL (11.5-15.3) 11/09/22 18:30 Hct 45.8 % (37.0-47.0) 11/09/22 18:30 MCV 91.1 fl (81-99) 11/09/22 18:30 MCH 30.4 pg (28.0-34.0) 11/09/22 18: MCHC 33.4 g/dL (30.0-36.0) 11/09/22 18:30 RDW 13.2 % (12.1-15.1) 11/09/22 18:30 Plt Count 251 10^3/cmm (130-400) 11/09/22 18:30 MPV 9.7 fL (7.4-10.4) 11/09/22 18:30 Neut % (Auto) 71.2 % 11/09/22 18:30 Lymph % (Auto) 15.6 % 11/09/22 18: [place] % (Auto) 12.8 % 11/09/22 18:30 Eos % (Auto) 0.0 % 11/09/22 18: Baso % (Auto) 0.2 % 11/09/22 18: Neut # (Auto) 6.36 10^3/uL (1.8-7.7) 11/09/22 18:30 Lymph # (Auto) 1.4 10^3/uL (0.8-4.8) 11/09/22 18:30 [place] # (Auto) 1.1 10^3/uL (0.2-0.9) H 11/09/22 18:30 Eos # (Auto) 0.0 10^3/uL (0.0-0.8) 11/09/22 18: Baso # (Auto) 0.0 10^3/uL (0.0-0.1) 11/09/22 18:30 Nucleated RBC % (auto) 0 % 11/09/22 18:30 Nucleated RBCs # 0.0 /100WBC 11/09/22 18:30 Sodium 129 mmol/L (136-145) L 11/09/22 18:30 Potassium 5.0 mmol/L (3.5-5.1) 11/09/22 18:30 Chloride 92 mmol/L (98-107) L 11/09/22 18:30 Carbon Dioxide 21 mmol/L (22-29) L 11/09/22 18:30 Anion Gap 21.0 (5-19) H 11/09/22 18:30 BUN 18 mg/dL (6-20) 11/09/22 18:30 Creatinine 0.9 mg/dL (0.5-0.9) 11/09/22 18:30 GFR Calculation 72.1 mL/min (90-130) L 11/09/22 18:30 Glucose 339 mg/dL (65-115) H 11/09/22 18:30 POC Glucose 364 mg/dL (70-110) H 11/09/22 20:22 Calculated Osmolality 283 mOsm/kg (285-295) L 11/09/22 18:30 Calcium 9.1 mg/dL (8.5-10.5) 11/09/22 18:30 Total Bilirubin 0.2 mg/dL (0.15-1.2) 11/09/22 18:30 AST 20 U/L (0-32) 11/09/22 18:30 ALT 14 U/L (0-33) 11/09/22 18:30 Alkaline Phosphatase 159 U/L (35-105) H 11/09/22 18:30 Total Protein 9.0 g/dL (6.6-8.7) H 11/09/22 18:30 Albumin 4.4 g/dL (3.5-5.2) 11/09/22 18:30 Globulin 4.6 g/dL (1.3-4.6) 11/09/22 18:30 Lipase 5 U/L (13-60) L 11/09/22 18:30 HCG, Qual Negative (Negative) 11/09/22 18:30 Urine Color Yellow (Yellow) 11/09/22 19: Urine Appearance Clear (CLEAR) 11/09/22 19:32 Urine pH 5 (5-7) 11/09/22 19:32 Ur Specific [place] 1.020 (1.005-1.030) 11/09/22 19:32 Urine Protein Neg (Negative) 11/09/22: Urine Glucose (UA) 4+ (Normal) H 11/09/22 19:32 Urine Ketones 3+ (Negative) H 11/09/22 19:32 Urine Blood 3+ (Negative) H 11/09/22 19:32 Urine Nitrate Negative (Negative) 11/09/22: Urine Bilirubin Neg (Negative) 11/09/22 19:32 Urine Urobilinogen Norm mg/dL (Negative) 11/09/22 19:32 Ur Leukocyte Esterase Negative (Negative) 11/09/22 19:32 Urine RBC 5-10 /hpf (0-2) H 11/09/22 19:32 Urine WBC 0-4 /hpf (0-5) H 11/09/22 19:32 Ur Squamous Epith Cells 0-4 /hpf (0-5) H 11/09/22 19:32 Amorphous Sediment Not Reportable 11/09/22 19:32 Urine Bacteria Not Reportable 11/09/22 19:32 Hyaline Casts Rare /lpf 11/09/22 19:32 Urine Mucus 1+ /hpf 11/09/22 19:32 Discharge Plan Discharge Patient Disposition: Home Clinical Impression: Vomiting, Sinusitis Condition: Stable Prescriptions: New ondansetron 4 mg tablet,disintegrating 4 mg PO Q6H PRN (Reason: nausea and vomiting) Qty: 14 0RF Augmentin 500-125 mg tablet 1 tab PO BID Qty: 14 0RF No Action Rexulti 3 mg tablet 3 mg PO DAILY Qty: 30 3RF mirtazapine 30 mg tablet See Rx Instructions .ROUTE .COMPLEX Qty: 30 3RF Dose Instruction: TAKE 1 TABLET BY MOUTH AT BEDTIME Rx Instructions: TAKE 1 TABLET BY MOUTH AT BEDTIME trazodone 50 mg tablet 50 mg PO .at bedtime Qty: 30 3RF Rx Instructions: 1/2-1 tab at bedtime levalbuterol HCl 0.63 mg/3 mL solution for nebulization 0.63 mg INHALATION DAILY Novolog U-100 Insulin aspart 100 unit/mL solution See Rx Instructions .ROUTE .COMPLEX Rx Instructions: PT STATES SHE IS ON AN INSULIN PUMP. ursodiol 300 mg capsule 300 mg PO DAILY gabapentin 300 mg capsule See Rx Instructions .ROUTE .COMPLEX Rx Instructions: PT STATES SHE TAKES 1 TABS IN THE MORNING, 1 TAB IN THE AFTERNOON, AND 2 TABS AT NIGHT omeprazole 20 mg capsule,delayed release(DR/EC) 40 mg PO DAILY azithromycin 500 mg tablet 500 mg PO DAILY Creon 24,000-76,000 -120,000 unit capsule,delayed release(DR/EC) See Rx Instructions .ROUTE .COMPLEX Rx Instructions: orally PT STATES SHE TAKES 2 TABS WITH MEALS AND 2 TABS WITH SNACKS. Trikafta 100-50-75 mg(d) /150 mg (n) tablets, sequential 1 ea PO DAILY Discharge Orders: Discharge ED (Routine); Ordered 11/09/22 Ordered By: Jailyn Cano Referrals: Sarahi Nation MD [Primary Care Provider] - 1-3 days Discharge Diet: Advance as tolerated Discharge Activity: Resume usual activity Patient Instructions: Sinusitis (ED), Acute Nausea and Vomiting (ED) Coding Level of Care Code ED Professional Driver for Bella Franklin
[2022-11-09 18:59] LABS: HCG, Serum Qual Negative (Negative)
[2022-11-09 19:05] LABS: Alanine Aminotransferase 14 U/L (0-33); Albumin Level 4.4 g/dL (3.5-5.2); Alkaline Phosphatase 159 U/L (35-105); Aspartate Amino Transferase 20 U/L (0-32); Blood Urea Nitrogen 18 mg/dL (6-20); Calcium 9.1 mg/dL (8.5-10.5); Carbon Dioxide 21 mmol/L (22-29); Chloride 92 mmol/L (98-107); Globulin 4.6 g/dL (1.3-4.6); Glomerular Filtration Rate 72.1 mL/min (90-130); Glucose 339 mg/dL (65-115); Lipase 5 U/L (13-60); Osmolality Calculated 283 mOsm/kg (285-295); Sodium 129 mmol/L (136-145); Total Bilirubin 0.2 mg/dL (0.15-1.2)
--- NOTE | 2022-11-09 19:05 | PC.NURSE ---
REPORT GIVEN TO ANALIA GOODWIN ASSUMED CARE.
[2022-11-09] MEDS: sodium chloride 0.9% 1,000 ML 999 ML IV ×2 (19:40→20:37)
[2022-11-09] MEDS: ondansetron 2 mg/ML SDV 2 mL 4 MG IVP (19:40)
[2022-11-09 19:42] VITALS: BP 135/85; PULSE 88; RESP 18; O2SAT 94
[2022-11-09 20:06] LABS: Blood Urine 3+ (Negative); Glucose Urine UA 4+ (Normal); Ketones Urine 3+ (Negative); Protein Urine Neg (Negative); Urine Appearance Clear (CLEAR); Urine Color Yellow (Yellow); pH Urine 5 (5-7)
[2022-11-09 20:07] LABS: Add Urine Microscopic? YES; Bilirubin Urine Neg (Negative); Leukocyte Esterase Urine Negative (Negative); Nitrate Urine Negative (Negative); Urobilinogen Urine Norm (Negative)
[2022-11-09 20:12] LABS: Hyaline Casts Urine RARE /lpf; Mucus Urine 1+ /hpf; Squamous Epithelial Cell Urine 0-4 /hpf (0-5); WBC Urine 0-4 /hpf (0-5)
[2022-11-09 20:13] LABS: Add Urine Culture? No
[2022-11-09 20:26] LABS: Glucose Point of Care 364 mg/dL (70-110)
[2022-11-09] MEDS: insulin regular-human 100 units/1 mL 6 UNIT IVP (20:36)
--- NOTE | 2022-11-09 21:14 | PC.NURSE ---
BG 251 @ 1912; Dr. Cano notified.
[2022-11-09 21:35] VITALS: BP 98/80; PULSE 96; RESP 16; O2SAT 99
[2022-11-10 04:32] LABS: Glucose Point of Care 251 mg/dL (70-110)
== END 2022-11-09 21:36 | disposition home or self-care (01) ==
PROVIDERS: Emergency Provider Emergency Medicine; PCP Family Medicine
DX: R11.11 Vomiting without nausea (principal); J32.9 Chronic sinusitis, unspecified; Z79.4 Long term (current) use of insulin; E10.9 Type 1 diabetes mellitus without complications
CPT/HCPCS: 36415; 36416; 80053; 81001; 82962; 83690; 84703; 85025; 96361; 96374; 96375; 99284; J1815; J2405; J7030

== ENCOUNTER → 2023-02-03 14:45 | Outpatient (BNVA) | payer MEDICARE, OTHER, SELFPAY | PROVIDERS: PCP Family Medicine; Visit Provider Registered Nurse | DX: R74.8 Abnormal levels of other serum enzymes (principal); Z79.899 Other long term (current) drug therapy; M25.551 Pain in right hip; M25.552 Pain in left hip; F33.1 Major depressive disorder, recurrent, moderate; E84.9 Cystic fibrosis, unspecified; E10.9 Type 1 diabetes mellitus without complications | CPT/HCPCS: 80053; 80061; 82306; 82607; 83036; 83540; 84443; 85025 ==

== ENCOUNTER 2024-05-14 08:42 | Observation (INO) | payer MEDICARE, MEDICAID, SELFPAY ==
[2024-05-14] VITALS (38 sets, daily range): BP systolic 86–123; BP diastolic 39–84; PULSE 63–116; RESP 17–26; TEMP 36.6–36.9; O2SAT 54–100; BMI 22.6
--- NOTE | 2024-05-14 08:53 | ECG_ITS ---
[employer] Test Date: 2024-05-14 Pat Name: Kateryna Odroñez Department: Room: Gender: Female Air Moving Technician: : 1990 Requested By: Bee Aldrich Order Number: [id number] Kaplan MD: Madison Martinez M.D. Measurements Intervals [place] Rate: 115 P: 72 WI: 137 QRS: 25 QRSD: 101 T: 54 QT: 328 QTc: 454 Interpretive Statements SINUS TACHYCARDIA INCOMPLETE RIGHT BUNDLE BRANCH BLOCK [90+ ms QRS DURATION, TERMINAL R IN V1/V2, 40+ ms S IN I/aVL/V4/V5/V6] ABNORMAL RHYTHM ECG Compared to ECG 10/06/2019 20:19:04 Sinus rhythm no longer present Electronically Signed On 05-14-2024 19:35:24 SENIOR AIR DIRECTOR by Madison Martinez M.D. [email or web address]
[2024-05-14 08:58] LABS: Glucose Point of Care > 600 mg/dL (70-110)
--- NOTE | 2024-05-14 09:02 | ED_ITS ---
Documented by User: EUEGNE Jones 05/14/24 11:56 HPI - General Adult 2 General: Chief complaint: Weakness Stated complaint: hypoglycemia Time Seen by Provider: 05/14/24 08:44 Source: patient Mode of arrival: EMS Limitations: no limitations History of Present Illness: Patient is a 34-year-old female with a history of cystic fibrosis, DM 1, GERD, and anxiety/depression here for complaints of elevated blood sugars. Patient states she has a continual glucose monitor/insulin pump that she feels like went out . She checked it while I was in the room and the small cutaneous cannula was bent/broken. She states her excellence consultant is through [facility]. Patient states she woke up in the middle of the night feeling off and reported achiness and nausea. She states she was manually able to check a blood glucose which read high . She dosed herself insulin and went back to bed but did not feel any better this morning. [place] like her heart rate was high and she was very thirsty. Patient does have a history of DKA. States she has had a few episodes of nausea and vomiting this morning. Onset (ago): hour(s) Relieving factors: none Exacerbating factors: none Associated symptoms: Reports malaise, nausea and vomiting; Deny chest pain, dyspnea, headache(s), rash, palpitations or syncope Treatments prior to arrival: none Related Data Home Medications Medication Instructions Recorded Confirmed gabapentin 300 mg capsule See Rx Instructions .Route .COMPLEX 10/06/19 05/14/24 levalbuterol HCl 0.63 mg/3 mL 0.63 mg inhalation DAILY 10/06/19 05/14/24 solution for nebulization [id number] See Rx Instructions .Route .COMPLEX 10/06/19 05/14/24 24,000-76,000-120,000 unit capsule,delayed rel (Creon) omeprazole 20 mg capsule,delayed 40 mg PO DAILY 10/06/19 05/14/24 release ursodiol 300 mg capsule 300 mg PO DAILY 10/06/19 05/14/24 azithromycin 500 mg tablet 500 mg PO BID 05/14/24 05/14/24 aztreonam lysine 75 mg/mL solution 75 mg inhalation BID 05/14/24 05/14/24 for nebulization ([place]) brexpiprazole 4 mg tablet (Rexulti) 4 mg PO DAILY 05/14/24 05/14/24 buspirone 5 mg tablet 5 mg PO TID 05/14/24 05/14/24 dornase danyelle 1 mg/mL solution for 1 mg inhalation DAILY 05/14/24 05/14/24 inhalation (Pulmozyme) elexacaftor 100 mg-tezacaf 1 ea PO TID 05/14/24 05/14/24 50mg-ivacaf 75mg(d)/ivacaf 150mg(n) tablets (Trikafta) fluoride (sodium) 1.1 % dental 1 applic dental DAILY 05/14/24 05/14/24 cream (Sodium Fluoride 5000 Plus) fluticasone propionate 50 1 spray intranasal DAILY 05/14/24 05/14/24 mcg/actuation nasal spray,suspension insulin lispro 100 unit/mL See Rx Instructions .Route .COMPLEX 05/14/24 05/14/24 subcutaneous solution (Humalog U-100 Insulin) mirtazapine 45 mg tablet 45 mg PO QPM 05/14/24 05/14/24 sodium chloride 7 % for 1 inh inhalation PRN 05/14/24 05/14/24 nebulization (Hyper-Lucien) Previous Rx's Medication Instructions Recorded trazodone 50 mg tablet See Rx Instructions .Route 08/03/23 .COMPLEX #30 tabs Allergies Allergy/AdvReac Type Severity Reaction Status Date / Time vancomycin Allergy Severe ALGY-Rash Verified 11/09/22 16:24 Influenza Virus Vaccines Allergy ALGY-Rash Verified 11/09/22 16:24 Review of Systems 2 Const: Reports: body aches and malaise; Denies: fever(s), chills or fatigue Eyes: Denies: change in vision or blurry vision Card: Denies: chest pain, palpitations, irregular heart rhythm, lightheadedness, syncope or dyspnea on exertion Resp: Denies: dyspnea, productive cough or pain on inspiration GI: Reports: abdominal pain, nausea and vomiting; Denies: heartburn or diarrhea : Denies: flank pain or dysuria Musc: Denies: neck pain, back pain, extremity pain, extremity swelling or joint pain Skin/Breast: Denies: rash Neuro: Denies: headache(s), numbness in extremities, weakness in extremities or sensory changes PFSH ED 2 PFSH: Medical History Psychiatric care Chronic post-traumatic stress disorder Generalized anxiety disorder Major depressive disorder, recurrent, moderate GERD (gastroesophageal reflux disease) Depression Anxiety Type 1 diabetes Cystic fibrosis Surgical History History of biliary stent insertion Family History Sister Leukemia Sister , at 26 yo Cystic fibrosis Social History Smoking and tobacco/nicotine status: never used tobacco/nicotine Alcohol intake: never Substance/Drug Use: never Lives independently: Yes Marital status: Current occupational status: disabled Current gender identity: Female Physical Exam 2 Const: COMMON NORMALS: no acute distress, average body habitus, patient oriented x3, no limitations, healthy appearing, alert and well nourished G ENERAL APPEARANCE: cooperative ORIENTATION/CONSCIOUSNESS: Yes awake, Yes oriented to person, Yes oriented to place and Yes oriented to time HENMT: COMMON NORMALS: normocephalic and atraumatic HEAD & SCALP: n ormocephalic and atraumatic Eye: GENERAL EYE: appearance normal, both eyes and all related structures Neck/C-Spine: COMMON NORMALS: full ROM, no lymphadenopathy, supple and no meningeal signs Chest: COMMONS NORMALS: normal inspection of the chest Resp: COMMON NORMALS: normal respiratory effort and clear to auscultation bilaterally AUSCULTATION: clear to auscultation bilaterally Cardio: COMMON NORMALS: regular rhythm RATE: tachycardic RHYTHM: regular rhythm GI: COMMON NORMALS: Normal to inspection, nondistended, normoactive bowel sounds present, Soft to palpation, non-tender, No hepatosplenomegaly present and no masses PALPATION: Yes Soft to palpation and Yes No hepatosplenomegaly present : COMMON NORMALS: Yes no CVA tenderness BLADDER/KIDNEY EXAM: Yes no CVA tenderness Back/Pelvis: COMMON NORMALS: no CVA tenderness and thoracic and lumbar spine normal to inspection Extremity: COMMON NORMALS: normal to inspection GENERAL: Yes normal exam except as noted Neuro: [place] COMA SCALE: document GCS findings [place] coma scale eye opening: Spontaneous [place] coma scale verbal response: Orientated [place] coma scale motor response: [place] commands [place] coma scale total score: 15 COMMON NORMALS: patient oriented x3 SENSORIUM/ORIENTATION: Yes alert, Yes oriented to person, Yes oriented to place and Yes oriented to time MENINGEAL SIGNS: Y es no meningeal signs Skin: COMMON NORMALS: no rashes or lesions noted GENERAL SKIN EXAM: no rashes or lesions noted Course 2 Consultations: Consultation #1: Dr. Ford-accepts admission to ICU Vital Signs: Vital signs: Vital Signs Temperature 98.1 F 05/15/24 05:00 Pulse Rate 64 05/15/24 06:00 Respiratory Rate 19 H 05/15/24 06:00 Blood Pressure 80/51 05/15/24 05:45 Pulse Oximetry 98 05/15/24 06:00 Oxygen Delivery Me thod Room Air 05/15/24 05:00 MDM - General Adult Medical Decision Making Patient is a 34-year-old female here in DKA. She arrives hypotensive and tachycardic. ABG initially obtained showing a pH of 7.2. Her bicarb is 12. She has a gap of 38.3. Potassium 4.3. Blood sugars initially over 700 upon arrival. She was given 2L of fluid as well as insulin bolus and started on insulin drip for treatment of DKA. Due to her hypotension, tachycardia, elevated white count, and elevated lactate consideration was given for sepsis however clinically I do not have any concern for this and these most likely all represent changes associated with her DKA. Dr. Ford did not want prophylactic IV antibiotics. She was given bolus of fluids for treatment of the DKA. She would be an admit to ICU. Dr. Rich aware of this patient and agrees with care plan here in the emergency department. Medical Records I reviewed the patient's medical records. Lab Data I reviewed the patient's lab results. 05/14/24 09:59 05/15/24 02:42 Radiology Impressions Chest X-Ray 05/14/24 10:20 IMPRESSION: 1. Slight infiltrate, atelectasis, and/or fibrosis over portions of lungs, perihilar regions, right greater than left. Perhaps slight peribronchial thickening. Correlate for nonspecific bronchitis/bronchiolitis, reactive airways, or other process. 2. Nonspecific calcific densities over right upper quadrant abdomen. Correlation with ultrasound scan, possibly CT scan recommended. 3. Please see body of report. Laboratory Results WBC 28.25 10^3/uL (3.29-11.43) H 05/14/24 09:59 RBC 4.00 10^6/uL (3.85-5.65) 05/14/24 09:59 Hgb 12.10 g/dL (11.27-16.99) 05/14/24 09:59 Hct 38.2 % (36-47) 05/14/24 09:59 MCV 95.5 fl (85-98) 05/14/24 09:59 MCH 30.3 pg (27-33) 05/14/24 09:59 MCHC 31.7 g/dL (30-55) 05/14/24 09:59 RDW 12.3 % (12.1-15.1) 05/14/24 09:59 Plt Count 307 10^3/cmm (157-399) 05/14/24 09:59 MPV 10.0 fL (7.4-10.4) 05/14/24 09:59 Neut % (Auto) 92.4 % 05/14/24 09:59 Lymph % (Auto) 4.1 % 05/14/24 09:59 Dale % (Auto) 2.5 % 05/14/24 09:59 Eos % (Auto) 0.1 % 05/14/24 09:59 Baso % (Auto) 0.4 % 05/14/24 09:59 Neut # (Auto) 26.11 10^3/uL (1.8-7.7) H 05/14/24 09:59 Lymph # (Auto) 1.2 10^3/uL (0.8-4.8) 05/14/24 09:59 Dale # (Auto) 0.7 10^3/uL (0.2-0.9) 05/14/24 09:59 Eos # (Auto) 0.0 10^3/uL (0.0-0.8) 05/14/24 09:59 Baso # (Auto) 0.1 10^3/uL (0.0-0.1) 05/14/24 09:59 Nucleated RBC % (auto) 0 % 05/14/24 09:59 Nucleated RBCs # 0.0 /100WBC 05/14/24 09:59 Specimen Type Arterial 05/14/24 09:09 Sample Site Brachial, right 05/14/24 09:09 ABG pH 7.20 (7.35-7.45) L 05/14/24 09:09 ABG pCO2 31.2 mmHg (35-45) L 05/14/24 09:09 ABG pO2 89.5 mmHg (80.0-100.0) 05/14/24 09:09 ABG PO2/FiO2 Ratio 426 05/14/24 09:09 ABG HCO3 12.2 mmol/L (22-26) L 05/14/24 09:09 ABG O2 Saturation 95.4 05/14/24 09:09 ABG Base Excess -14.5 mmol/L (-2.0-2.0) L 05/14/24 09:09 Te Test N/a 05/14/24 09:09 A-a O2 Gradient 2.7 mmHg (5-10) L 05/14/24 09:09 Hematocrit 37.0 % (37-47) 05/14/24 09:09 Hgb O2 Saturation 94.2 % (95-100) L 05/14/24 09:09 Carboxyhemoglobin 1.1 %THgb (0.4-20.1) 05/14/24 09:09 Methemoglobin 0.2 % (0.4-1.5) L 05/14/24 09:09 Total Hemoglobin 12.1 g/dL (-16) 05/14/24 09:09 Sodium 132.0 mmol/L (131-143) 05/14/24 09:09 Potassium 4.3 mmol/L (3.5-5.0) 05/14/24 09:09 Glucose 798.0 mg/dL (70-115) H 05/14/24 09:09 Ionized Calcium 1.2 mmol/L (1.1-1.4) 05/14/24 09:09 O2 Delivery Device Room air 05/14/24 09:09 FiO2 21.0 % 05/14/24 09:09 Dining Car Conductor ID Amh 05/14/24 09:09 Sodium 134 mmol/L (136-145) L 05/14/24 09:59 Potassium 4.3 mmol/L (3.5-5.1) 05/14/24 09:59 Chloride 88 mmol/L (98-107) L 05/14/24 09:59 Carbon Dioxide 12 mmol/L (22-29) L 05/14/24 09:59 Anion Gap 38.3 (5-19) H 05/14/24 09:59 BUN 25 mg/dL (6-20) H 05/14/24 09:59 Creatinine 1.3 mg/dL (0.5-0.9) H 05/14/24 09:59 GFR Calculation 46.6 mL/min (90-130) L 05/14/24 09:59 Glucose 764 mg/dL (65-115) H* 05/14/24 09:59 POC Glucose 461 mg/dL (70-110) H 05/14/24 13:14 Calculated Osmolality 319 mOsm/kg (285-295) H 05/14/24 09:59 Lactic Acid 5.7 mmol/L (0.5-2.2) H* 05/14/24 09:59 Lactic Acid (Sepsis) 1.6 mmol/L (0.5-2.2) 05/14/24 12:52 Calcium 9.0 mg/dL (8.5-10.5) 05/14/24 09:59 Phosphorus 5.5 mg/dL (2.5-4.5) H 05/14/24 09:59 Magnesium 1.7 mg/dL (1.7-2.3) 05/14/24 09:59 Total Bilirubin 0.4 mg/dL (0.15-1.2) 05/14/24 09:59 AST 9 U/L (0-32) 05/14/24 09:59 ALT 9 U/L (0-33) 05/14/24 09:59 Alkaline Phosphatase 153 U/L (35-105) H 05/14/24 09:59 Total Protein 7.8 g/dL (6.6-8.7) 05/14/24 09:59 Albumin 3.8 g/dL (3.5-5.2) 05/14/24 09:59 Globulin 4.0 g/dL (1.3-4.6) 05/14/24 09:59 Lipase 5 U/L (13-60) L 05/14/24 09:59 HCG, Qual Negative (Negative) 05/14/24 09:59 Urine Color Yellow (Yellow) 05/14/24 11:37 Urine Appearance Clear (CLEAR) 05/14/24 11:37 Urine pH 5.0 (5-7) 05/14/24 11:37 Ur Specific [place] 1.023 (1.005-1.030) 05/14/24 11:37 Urine Protein Negative (Negative) 05/14/24 11:37 Urine Glucose (UA) 3+ (Normal) H 05/14/24 11:37 Urine Ketones 3+ (Negative) H 05/14/24 11:37 Urine Blood Trace (Negative) A 05/14/24 11:37 Urine Nitrate Negative (Negative) 05/14/24 11:37 Urine Bilirubin Negative (Negative) 05/14/24 11:37 Urine Urobilinogen 0.2 mg/dL (Negative) 05/14/24 11:37 Ur Leukocyte Esterase Negative (Negative) 05/14/24 11:37 Urine RBC 3-5 /hpf (0-2) 05/14/24 11:37 Urine WBC 0-5 /hpf (0-5) 05/14/24 11:37 Ur Squamous Epith Cells 0-5 /hpf (0-5) 05/14/24 11:37 Amorphous Sediment Not Reportable 05/14/24 11:37 Urine Bacteria None seen /hpf (NONE) 05/14/24 11:37 Hyaline Casts 1.21 /lpf 05/14/24 11:37 Serum Ketones Positive (Negative) H 05/14/24 09:59 Adenovirus (PCR) Not detected (NOT DETECT) 05/14/24 12:02 C. pneumoniae DNA (PCR) Not detected (NOT DETECT) 05/14/24 12:02 Coronavirus 229E (PCR) Not detected (NOT DETECT) 05/14/24 12:02 Human Metapneumovir PCR Not detected (NOT DETECT) 05/14/24 12:02 Influenza A (H1) PCR Not detected (NOT DETECT) 05/14/24 12:02 Influ A (H1/09) PCR Not detected (NOT DETECT) 05/14/24 12:02 Influenza A (H3) PCR Not detected (NOT DETECT) 05/14/24 12:02 Influenza Type A (PCR) Not detected (NOT DETECT) 05/14/24 12:02 Influenza Type B (PCR) Not detected (NOT DETECT) 05/14/24 12:02 M. pneumoniae (PCR) Not detected (NOT DETECT) 05/14/24 12:02 Parainfluenza 1 (PCR) Not detected (NOT DETECT) 05/14/24 12:02 Parainfluenza 2 (PCR) Not detected (NOT DETECT) 05/14/24 12:02 Parainfluenza 3 (PCR) Not detected (NOT DETECT) 05/14/24 12:02 Parainfluenza 4 (PCR) Not detected (NOT DETECT) 05/14/24 12:02 RSV Type A (PCR) Not detected (NOT DETECT) 05/14/24 12:02 RSV Type B (PCR) Not detected (NOT DETECT) 05/14/24 12:02 Entero/Rhino (PCR) Not detected (NOT DETECT) 05/14/24 12:02 SARS-CoV-2 (PCR) Not detected (NOT DETECT) 05/14/24 12:02 All radiology interpretation(s) finalized by discharge Discharge Plan Discharge Patient Disposition: Admitted As Inpatient Admit Provider: Blayne Ford Clinical Impression: DKA, type 1 Condition: Stable Coding Level of Care Code ED Transmitter Operator for Chg Fwd Documented by User: Arnold Rich DO 05/15/24 06:13 HPI - General Adult 2 General: Chief complaint: Weakness Stated complaint: hypoglycemia Time Seen by Provider: 05/14/24 08:44 Related Data Home Medications Medication Instructions Recorded Confirmed gabapentin 300 mg capsule See Rx Instructions .Route .COMPLEX 10/06/19 05/14/24 levalbuterol HCl 0.63 mg/3 mL 0.63 mg inhalation DAILY 10/06/19 05/14/24 solution for nebulization [id number] See Rx Instructions .Route .COMPLEX 10/06/19 05/14/24 24,000-76,000-120,000 unit capsule,delayed rel (Creon) omeprazole 20 mg capsule,delayed 40 mg PO DAILY 10/06/19 05/14/24 release ursodiol 300 mg capsule 300 mg PO DAILY 10/06/19 05/14/24 azithromycin 500 mg tablet 500 mg PO BID 05/14/24 05/14/24 aztreonam lysine 75 mg/mL solution 75 mg inhalation BID 05/14/24 05/14/24 for nebulization ([place]) brexpiprazole 4 mg tablet (Rexulti) 4 mg PO DAILY 05/14/24 05/14/24 buspirone 5 mg tablet 5 mg PO TID 05/14/24 05/14/24 dornase danyelle 1 mg/mL solution for 1 mg inhalation DAILY 05/14/24 05/14/24 inhalation (Pulmozyme) elexacaftor 100 mg-tezacaf 1 ea PO TID 05/14/24 05/14/24 50mg-ivacaf 75mg(d)/ivacaf 150mg(n) tablets (Trikafta) fluoride (sodium) 1.1 % dental 1 applic dental DAILY 05/14/24 05/14/24 cream (Sodium Fluoride 5000 Plus) fluticasone propionate 50 1 spray intranasal DAILY 05/14/24 05/14/24 mcg/actuation nasal spray,suspension insulin lispro 100 unit/mL See Rx Instructions .Route .COMPLEX 05/14/24 05/14/24 subcutaneous solution (Humalog U-100 Insulin) mirtazapine 45 mg tablet 45 mg PO QPM 05/14/24 05/14/24 sodium chloride 7 % for 1 inh inhalation PRN 05/14/24 05/14/24 nebulization (Hyper-Lucien) Previous Rx's Medication Instructions Recorded trazodone 50 mg tablet See Rx Instructions .Route 08/03/23 .COMPLEX #30 tabs Allergies Allergy/AdvReac Type Severity Reaction Status Date / Time vancomycin Allergy Severe ALGY-Rash Verified 11/09/22 16:24 Influenza Virus Vaccines Allergy ALGY-Rash Verified 11/09/22 16:24 PFSH ED 2 PFSH: Medical History Psychiatric care Chronic post-traumatic stress disorder Generalized anxiety disorder Major depressive disorder, recurrent, moderate GERD (gastroesophageal reflux disease) Depression Anxiety Type 1 diabetes Cystic fibrosis Surgical History History of biliary stent insertion Family History Sister Leukemia Sister , at 26 yo Cystic fibrosis Social History Smoking and tobacco/nicotine status: never used tobacco/nicotine Alcohol intake: never Substance/Drug Use: never Lives independently: Yes Marital status: Current occupational status: disabled Current gender identity: Female Physical Exam 2 Neuro: [place] COMA SCALE: document GCS findings [place] coma scale total score: 15 Course 2 Vital Signs: Vital signs: Vital Signs Temperature 98.1 F 05/15/24 05:00 Pulse Rate 64 05/15/24 06:00 Respiratory Rate 19 H 05/15/24 06:00 Blood Pressure 80/51 05/15/24 05:45 Pulse Oximetry 98 05/15/24 06:00 Oxygen Delivery Me thod Room Air 05/15/24 05:00 MDM - General Adult Medical Decision Making Patient is a 34-year-old female here in DKA. She arrives hypotensive and tachycardic. ABG initially obtained showing a pH of 7.2. Her bicarb is 12. She has a gap of 38.3. Potassium 4.3. Blood sugars initially over 700 upon arrival. She was given 2L of fluid as well as insulin bolus and started on insulin drip for treatment of DKA. Due to her hypotension, tachycardia, elevated white count, and elevated lactate consideration was given for sepsis however clinically I do not have any concern for this and these most likely all represent changes associated with her DKA. Dr. Ford did not want prophylactic IV antibiotics. She was given bolus of fluids for treatment of the DKA. She would be an admit to ICU. Dr. Rich aware of this patient and agrees with care plan here in the emergency department. Chart reviewed and patient discussed with midlevel. Agree with assessment and plan. Lab Data 05/14/24 09:59 05/15/24 02:42 Radiology Impressions Chest X-Ray 05/14/24 10:20 IMPRESSION: 1. Slight infiltrate, atelectasis, and/or fibrosis over portions of lungs, perihilar regions, right greater than left. Perhaps slight peribronchial thickening. Correlate for nonspecific bronchitis/bronchiolitis, reactive airways, or other process. 2. Nonspecific calcific densities over right upper quadrant abdomen. Correlation with ultrasound scan, possibly CT scan recommended. 3. Please see body of report. Laboratory Results WBC 28.25 10^3/uL (3.29-11.43) H 05/14/24 09:59 RBC 4.00 10^6/uL (3.85-5.65) 05/14/24 09:59 Hgb 12.10 g/dL (11.27-16.99) 05/14/24 09:59 Hct 38.2 % (36-47) 05/14/24 09:59 MCV 95.5 fl (85-98) 05/14/24 09:59 MCH 30.3 pg (27-33) 05/14/24 09:59 MCHC 31.7 g/dL (30-55) 05/14/24 09:59 RDW 12.3 % (12.1-15.1) 05/14/24 09:59 Plt Count 307 10^3/cmm (157-399) 05/14/24 09:59 MPV 10.0 fL (7.4-10.4) 05/14/24 09:59 Neut % (Auto) 92.4 % 05/14/24 09:59 Lymph % (Auto) 4.1 % 05/14/24 09:59 Dale % (Auto) 2.5 % 05/14/24 09:59 Eos % (Auto) 0.1 % 05/14/24 09:59 Baso % (Auto) 0.4 % 05/14/24 09:59 Neut # (Auto) 26.11 10^3/uL (1.8-7.7) H 05/14/24 09:59 Lymph # (Auto) 1.2 10^3/uL (0.8-4.8) 05/14/24 09:59 Dale # (Auto) 0.7 10^3/uL (0.2-0.9) 05/14/24 09:59 Eos # (Auto) 0.0 10^3/uL (0.0-0.8) 05/14/24 09:59 Baso # (Auto) 0.1 10^3/uL (0.0-0.1) 05/14/24 09:59 Nucleated RBC % (auto) 0 % 05/14/24 09:59 Nucleated RBCs # 0.0 /100WBC 05/14/24 09:59 Specimen Type Arterial 05/14/24 09:09 Sample Site Brachial, right 05/14/24 09:09 ABG pH 7.20 (7.35-7.45) L 05/14/24 09:09 ABG pCO2 31.2 mmHg (35-45) L 05/14/24 09:09 ABG pO2 89.5 mmHg (80.0-100.0) 05/14/24 09:09 ABG PO2/FiO2 Ratio 426 05/14/24 09:09 ABG HCO3 12.2 mmol/L (22-26) L 05/14/24 09:09 ABG O2 Saturation 95.4 05/14/24 09:09 ABG Base Excess -14.5 mmol/L (-2.0-2.0) L 05/14/24 09:09 Te Test N/a 05/14/24 09:09 A-a O2 Gradient 2.7 mmHg (5-10) L 05/14/24 09:09 Hematocrit 37.0 % (37-47) 05/14/24 09:09 Hgb O2 Saturation 94.2 % (95-100) L 05/14/24 09:09 Carboxyhemoglobin 1.1 %THgb (0.4-20.1) 05/14/24 09:09 Methemoglobin 0.2 % (0.4-1.5) L 05/14/24 09:09 Total Hemoglobin 12.1 g/dL (-16) 05/14/24 09:09 Sodium 132.0 mmol/L (131-143) 05/14/24 09:09 Potassium 4.3 mmol/L (3.5-5.0) 05/14/24 09:09 Glucose 798.0 mg/dL (70-115) H 05/14/24 09:09 Ionized Calcium 1.2 mmol/L (1.1-1.4) 05/14/24 09:09 O2 Delivery Device Room air 05/14/24 09:09 FiO2 21.0 % 05/14/24 09:09 Dining Car Conductor ID Amh 05/14/24 09:09 Sodium 134 mmol/L (136-145) L 05/14/24 09:59 Potassium 4.3 mmol/L (3.5-5.1) 05/14/24 09:59 Chloride 88 mmol/L (98-107) L 05/14/24 09:59 Carbon Dioxide 12 mmol/L (22-29) L 05/14/24 09:59 Anion Gap 38.3 (5-19) H 05/14/24 09:59 BUN 25 mg/dL (6-20) H 05/14/24 09:59 Creatinine 1.3 mg/dL (0.5-0.9) H 05/14/24 09:59 GFR Calculation 46.6 mL/min (90-130) L 05/14/24 09:59 Glucose 764 mg/dL (65-115) H* 05/14/24 09:59 POC Glucose 461 mg/dL (70-110) H 05/14/24 13:14 Calculated Osmolality 319 mOsm/kg (285-295) H 05/14/24 09:59 Lactic Acid 5.7 mmol/L (0.5-2.2) H* 05/14/24 09:59 Lactic Acid (Sepsis) 1.6 mmol/L (0.5-2.2) 05/14/24 12:52 Calcium 9.0 mg/dL (8.5-10.5) 05/14/24 09:59 Phosphorus 5.5 mg/dL (2.5-4.5) H 05/14/24 09:59 Magnesium 1.7 mg/dL (1.7-2.3) 05/14/24 09:59 Total Bilirubin 0.4 mg/dL (0.15-1.2) 05/14/24 09:59 AST 9 U/L (0-32) 05/14/24 09:59 ALT 9 U/L (0-33) 05/14/24 09:59 Alkaline Phosphatase 153 U/L (35-105) H 05/14/24 09:59 Total Protein 7.8 g/dL (6.6-8.7) 05/14/24 09:59 Albumin 3.8 g/dL (3.5-5.2) 05/14/24 09:59 Globulin 4.0 g/dL (1.3-4.6) 05/14/24 09:59 Lipase 5 U/L (13-60) L 05/14/24 09:59 HCG, Qual Negative (Negative) 05/14/24 09:59 Urine Color Yellow (Yellow) 05/14/24 11:37 Urine Appearance Clear (CLEAR) 05/14/24 11:37 Urine pH 5.0 (5-7) 05/14/24 11:37 Ur Specific [place] 1.023 (1.005-1.030) 05/14/24 11:37 Urine Protein Negative (Negative) 05/14/24 11:37 Urine Glucose (UA) 3+ (Normal) H 05/14/24 11:37 Urine Ketones 3+ (Negative) H 05/14/24 11:37 Urine Blood Trace (Negative) A 05/14/24 11:37 Urine Nitrate Negative (Negative) 05/14/24 11:37 Urine Bilirubin Negative (Negative) 05/14/24 11:37 Urine Urobilinogen 0.2 mg/dL (Negative) 05/14/24 11:37 Ur Leukocyte Esterase Negative (Negative) 05/14/24 11:37 Urine RBC 3-5 /hpf (0-2) 05/14/24 11:37 Urine WBC 0-5 /hpf (0-5) 05/14/24 11:37 Ur Squamous Epith Cells 0-5 /hpf (0-5) 05/14/24 11:37 Amorphous Sediment Not Reportable 05/14/24 11:37 Urine Bacteria None seen /hpf (NONE) 05/14/24 11:37 Hyaline Casts 1.21 /lpf 05/14/24 11:37 Serum Ketones Positive (Negative) H 05/14/24 09:59 Adenovirus (PCR) Not detected (NOT DETECT) 05/14/24 12:02 C. pneumoniae DNA (PCR) Not detected (NOT DETECT) 05/14/24 12:02 Coronavirus 229E (PCR) Not detected (NOT DETECT) 05/14/24 12:02 Human Metapneumovir PCR Not detected (NOT DETECT) 05/14/24 12:02 Influenza A (H1) PCR Not detected (NOT DETECT) 05/14/24 12:02 Influ A (H1/09) PCR Not detected (NOT DETECT) 05/14/24 12:02 Influenza A (H3) PCR Not detected (NOT DETECT) 05/14/24 12:02 Influenza Type A (PCR) Not detected (NOT DETECT) 05/14/24 12:02 Influenza Type B (PCR) Not detected (NOT DETECT) 05/14/24 12:02 M. pneumoniae (PCR) Not detected (NOT DETECT) 05/14/24 12:02 Parainfluenza 1 (PCR) Not detected (NOT DETECT) 05/14/24 12:02 Parainfluenza 2 (PCR) Not detected (NOT DETECT) 05/14/24 12:02 Parainfluenza 3 (PCR) Not detected (NOT DETECT) 05/14/24 12:02 Parainfluenza 4 (PCR) Not detected (NOT DETECT) 05/14/24 12:02 RSV Type A (PCR) Not detected (NOT DETECT) 05/14/24 12:02 RSV Type B (PCR) Not detected (NOT DETECT) 05/14/24 12:02 Entero/Rhino (PCR) Not detected (NOT DETECT) 05/14/24 12:02 SARS-CoV-2 (PCR) Not detected (NOT DETECT) 05/14/24 12:02 Discharge Plan Discharge Patient Disposition: Admitted As Inpatient Admit Provider: Blayne oFrd Clinical Impression: DKA, type 1 Condition: Stable Coding Level of Care Code ED Transmitter Operator for Bella Franklin
[2024-05-14 09:20] LABS: ABG PCO2 31.2 mmHg (35-45); Alveolar-Arterial Oxygen Gradi 2.7 mmHg (5-10); Base Excess ABG -14.5 mmol/L (-2.0-2.0); Blood Gas Operator Identificat AMH; Blood Gas Sample Site Brachial, right; Blood Gas Sample Type Arterial; Carboxyhemoglobin 1.1 %THgb (0.4-20.1); HCO3 ABG 12.2 mmol/L (22-26); HGB O2 Sat 94.2 % (95-100); Ionized Calcium Level - ABG 1.2 mmol/L (1.1-1.4); Methemoglobin 0.2 % (0.4-1.5); Oxygen Device ROOM AIR; Oxygen Saturation ABG 95.4; PO2 ABG 89.5 mmHg (80.0-100.0); PO2 FiO2 Ratio Arterial Blood 426; Potassium Level - ABG 4.3 mmol/L (3.5-5.0); Total Hemoglobin 12.1 g/dL (12-16)
[2024-05-14] MEDS: sodium chloride 0.9% 1,000 ML 999 ML IV (10:04)
[2024-05-14] MEDS: insulin regular-human 100 units/1 mL 8 UNIT IVP (10:04)
[2024-05-14 10:11] LABS: Basophils # 0.1 10^3/uL (0.0-0.1); Basophils % 0.4 %; Eosinophils % 0.1 %; Hematocrit 38.2 % (36-47); Lymphocytes # 1.2 10^3/uL (0.8-4.8); Lymphocytes % 4.1 %; Mean Corpuscular HGB Conc 31.7 g/dL (30-55); Mean Corpuscular Hemoglobin 30.3 pg (27-33); Mean Corpuscular Volume 95.5 fl (85-98); Monocytes # 0.7 10^3/uL (0.2-0.9); Monocytes % 2.5 %; Neutrophils # 26.11 10^3/uL (1.8-7.7); Neutrophils % 92.4 %; Nucleated Red Blood Cells % 0 %; Platelet Count 307 10^3/cmm (157-399); Red Cell Distribution Width 12.3 % (12.1-15.1); White Blood Count 28.25 10^3/uL (3.29-11.43)
--- NOTE | 2024-05-14 10:20 | XRR_ITS ---
PROCEDURE INFORMATION: Exam: XR Chest Exam date and time: 05/14/2024 10:23 AM Age: 34 years old Clinical indication: Abnormal findings; Abnormal diagnostic tests; Abnormal ekg; Additional info: Tachy, elevated white count, dka TECHNIQUE: Imaging protocol: Radiologic exam of the chest. Views: 1 view. COMPARISON: CR XR chest 1V portable [id number] 10/06/2019 2:48 PM FINDINGS: Lungs: Slight infiltrate, atelectasis, and/or fibrosis over portions of lungs, perihilar regions, right greater than left. Perhaps slight peribronchial thickening. No large areas of dense lobar consolidation seen of the lungs. Pleural spaces: No large or obvious pneumothorax nor pleural effusion seen. Heart/Mediastinum: Heart size appears within normal. Bones/joints: Mild curvature spine. Intraperitoneal space: 1.8 cm ring, rim/eggshell calcification projects over medial right upper quadrant. Additional smaller calcific densities project over the visualized right upper quadrant. Gallstones, cholelithiasis, renal stones/calculi, vascular lesions, aneurysm of renal artery or other vascular structure, or other process possible. Other findings: Shallow inspiration. XR/XR chest 1V portable [id number] IMPRESSION: 1. Slight infiltrate, atelectasis, and/or fibrosis over portions of lungs, perihilar regions, right greater than left. Perhaps slight peribronchial thickening. Correlate for nonspecific bronchitis/bronchiolitis, reactive airways, or other process. 2. Nonspecific calcific densities over right upper quadrant abdomen. Correlation with ultrasound scan, possibly CT scan recommended. 3. Please see body of report.
[2024-05-14] MEDS: INSULIN REGULAR IN 0.9 % NACL 100 UNIT/100 ML BAG 6 UNIT IV (10:26)
[2024-05-14 10:28] LABS: HCG, Serum Qual Negative (Negative); Ketone (Acetest) Serum Positive (Negative)
[2024-05-14 10:28] LABS: Glucose Point of Care > 600 mg/dL (70-110)
[2024-05-14 10:32] LABS: Alanine Aminotransferase 9 U/L (0-33); Albumin Level 3.8 g/dL (3.5-5.2); Alkaline Phosphatase 153 U/L (35-105); Anion Gap 38.3 (5-19); Aspartate Amino Transferase 9 U/L (0-32); Blood Urea Nitrogen 25 mg/dL (6-20); Carbon Dioxide 12 mmol/L (22-29); Chloride 88 mmol/L (98-107); Creatinine Clr Calc Pharmacy 58.1471; Glomerular Filtration Rate 46.6 mL/min (90-130); Lipase 5 U/L (13-60); Magnesium 1.7 mg/dL (1.7-2.3); Phosphorus 5.5 mg/dL (2.5-4.5); Potassium 4.3 mmol/L (3.5-5.1); Sodium 134 mmol/L (136-145); Total Bilirubin 0.4 mg/dL (0.15-1.2); Total Protein 7.8 g/dL (6.6-8.7)
[2024-05-14 10:40] LABS: Osmolality Calculated 319 mOsm/kg (285-295)
[2024-05-14 10:42] LABS: Glucose 764 mg/dL (65-115); Lactic Sepsis W/Reflex 5.7 mmol/L (0.5-2.2)
--- NOTE | 2024-05-14 10:58 | PC.NURSE ---
PER PROTOCOL, DECREASED PATIENT BY 50% DUE TO DROP IN BG. PATIENTS BG READING 587 AT THIS TIME.
[2024-05-14 11:01] LABS: Glucose Point of Care 587 mg/dL (70-110)
[2024-05-14 11:40] LABS: Glucose Point of Care 496 mg/dL (70-110)
--- NOTE | 2024-05-14 11:41 | PC.NURSE ---
per dr. hicks, decrease insulin rate to 2 units/hr due to decrease by 100 points in 30 mins.
--- NOTE | 2024-05-14 11:42 | PC.NURSE ---
per verbal order from dr. hicks, cancel blood cultures and zosyn.
[2024-05-14 11:48] LABS: Bilirubin Urine Negative (Negative); Blood Urine Trace (Negative); Glucose Urine UA 3+ (Normal); Ketones Urine 3+ (Negative); Leukocyte Esterase Urine Negative (Negative); Nitrate Urine Negative (Negative); Protein Urine Negative (Negative); Specific Gravity, Urine 1.023 (1.005-1.030); Urine Appearance Clear (CLEAR); Urine Color Yellow (Yellow); Urobilinogen Urine 0.2 mg/dL (Negative)
[2024-05-14 11:50] LABS: Add Urine Microscopic? YES; Bacteria Urine None Seen /hpf; Hyaline Casts Urine 1.21 /lpf; Squamous Epithelial Cell Urine 0-5 /hpf (0-5); WBC Urine 0-5 /hpf (0-5)
[2024-05-14 11:53] LABS: Reflex Lactate Order REFLEX LACTIC ORDERD
[2024-05-14] MEDS: sodium chloride 0.9% 500 ML 999 ML IV (12:00)
--- NOTE | 2024-05-14 12:21 | P.HP_ITS ---
Providers/Chief Complaint 2 Admitting Physician: Blayne Ford MD, hospitalist Primary Care Provider: Sarahi Nation MD Chief Complaint: hypoglycemia History of Present Illness Kateryna Ordoñez is a 34 year old female with history of DKA and cystic fibrosis who presents to the emergency department with history of insulin pump malfunction. She states she started feeling lightheaded, noted to have elevated sugar, and given herself some insulin but later found out that her pump was not inserted correctly, and the catheter was crimped. She reports some nausea and vomiting. No recent fever. Has a chronic cough secondary to cystic fibrosis but no worse than usual. No burning with urination. No ill contacts. No blood in stool or black or tarry stools. Has not had a DKA event in approximately 4 to 5 years. Review of Systems 2 General: Reports: 10 or more systems reviewed and unremarkable except in HPI and below Card: Denies: chest pain Medications/Allergies Home Medications Medication Instructions Recorded Confirmed Last Taken Type gabapentin 300 mg capsule See Rx Instructions .Route .COMPLEX 10/06/19 05/14/24 10/06/19 History levalbuterol HCl 0.63 mg/3 mL 0.63 mg inhalation DAILY 10/06/19 05/14/24 10/06/19 History solution for nebulization [id number] See Rx Instructions .Route .COMPLEX 10/06/19 05/14/24 Unknown History 24,000-76,000-120,000 unit capsule,delayed rel (Creon) omeprazole 20 mg capsule,delayed 40 mg PO DAILY 10/06/19 05/14/24 10/06/19 History release ursodiol 300 mg capsule 300 mg PO DAILY 10/06/19 05/14/24 10/06/19 History trazodone 50 mg tablet See Rx Instructions .Route 08/03/23 05/14/24 Unknown Rx .COMPLEX #30 tabs azithromycin 500 mg tablet 500 mg PO BID 05/14/24 05/14/24 Unknown History aztreonam lysine 75 mg/mL solution 75 mg inhalation BID 05/14/24 05/14/24 Unknown [facility] brexpiprazole 4 mg tablet (Rexulti) 4 mg PO DAILY 05/14/24 05/14/24 Unknown History buspirone 5 mg tablet 5 mg PO TID 05/14/24 05/14/24 Unknown History dornase danyelle 1 mg/mL solution for 1 mg inhalation DAILY 05/14/24 05/14/24 Unknown History inhalation (Pulmozyme) elexacaftor 100 mg-tezacaf 1 ea PO TID 05/14/24 05/14/24 Unknown History 50mg-ivacaf 75mg(d)/ivacaf 150mg(n) tablets (Trikafta) fluoride (sodium) 1.1 % dental 1 applic dental DAILY 05/14/24 05/14/24 Unknown History cream (Sodium Fluoride 5000 Plus) fluticasone propionate 50 1 spray intranasal DAILY 05/14/24 05/14/24 Unknown History mcg/actuation nasal spray,suspension insulin lispro 100 unit/mL See Rx Instructions .Route .COMPLEX 05/14/24 05/14/24 Unknown History subcutaneous solution (Humalog U-100 Insulin) mirtazapine 45 mg tablet 45 mg PO QPM 05/14/24 05/14/24 Unknown History sodium chloride 7 % for 1 inh inhalation PRN 05/14/24 05/14/24 Unknown History nebulization (Hyper-Lucien) Allergies Allergy/AdvReac Type Severity Reaction Status Date / Time vancomycin Allergy Severe ALGY-Rash Verified 11/09/22 16:24 Influenza Virus Vaccines Allergy ALGY-Rash Verified 11/09/22 16:24 PFSH Acute 2 PFSH: Medical History Psychiatric care Chronic post-traumatic stress disorder Generalized anxiety disorder Major depressive disorder, recurrent, moderate GERD (gastroesophageal reflux disease) Depression Anxiety Type 1 diabetes Cystic fibrosis Surgical History History of biliary stent insertion Family History Sister Leukemia Sister , at 26 yo Cystic fibrosis Social History Smoking and tobacco/nicotine status: never used tobacco/nicotine Alcohol intake: never Substance/Drug Use: never Lives independently: Yes Marital status: Current occupational status: disabled Current gender identity: Female Vitals/I&O/Wt Last Vital Signs Temp 97.9 F 05/14/24 08:45 Pulse 94 05/14/24 11:16 Resp 17 05/14/24 08:45 BP 121/69 05/14/24 11:16 Pulse Ox 93 05/14/24 11:16 O2 Del Method Room Air 05/14/24 11:16 05/13/24 05/14/24 05/14/24 22:59 06:59 14:59 Intake Total 1603.1 / 1603.1 Balance 1603.1 / 1603.1 Weight last 48 hrs Weight 63.503 kg Physical Exam 2 Narrative: General Exam is an alert and conversive white female, no current distress. She reports her abdomen feels a little bit better HEENT: Atraumatic normocephalic. Oropharynx clear Neck is supple no lymphadenopathy thyromegaly Cardiovascular regular rate and rhythm, borderline tachycardic, no murmur Lungs a few coarse breath sounds bilaterally Abdomen is soft nontender positive bowel sounds. No obvious organomegaly exam is deferred Extremities no cyanosis clubbing or edema, cap refill brisk Skin no rash Neuro no obvious focal deficits Data 05/14/24 09:59 05/14/24 09:59 Other Labs: Bilateral infiltrates, interstitial changes, likely consistent with her history of cystic fibrosis ABG demonstrates a pH 7.2, pCO2 of 31, pO2 of 89 on room air Lactic acid 5.7 Calcium and albumin are normal Lipase normal LFTs normal with exception of alk phos of 153 Magnesium 1.7 hCG negative Urinalysis with 3-5 reds, 0-5 whites Ketones positive Viral respiratory panel is pending, ordered through the emergency department A&P Assessment and plan (1) DKA, type 1: Patient is in DKA, likely secondary to malfunction of insulin pump since last night DKA protocol Close follow-up of electrolytes every 4 hours Instructed ER to give total of at least 2 L bolus. Therefore we will give her another 500 cc thence of NS bolus After gap corrects, initiate long acting insulin and sliding scale May have clear liquid diet now ICU observation status Elevated white blood cell count likely secondary to demargination from significant stress of DKA. CBC tomorrow. Qualifiers: Diabetes mellitus complication detail: without coma Qualified Code(s): E10.10 - Type 1 diabetes mellitus with ketoacidosis without coma (2) Cystic fibrosis: Patient with history of cystic fibrosis Continue current medications Plan Multiple other medical problems as outlined in past medical history Full code Lovenox for DVT prophylaxis Attestations 2 Medical Necessity Statement*: Will need less than 2 midnight stay for evaluation and treatment of DKA Diagnoses DKA, type 1 E10.10 Diabetes mellitus complication detail: without coma Cystic fibrosis E84.9 Time Spent (min) 48
[2024-05-14] MEDS: acetaminophen 325 mg Tablet 650 MG PO (12:29)
[2024-05-14 12:35] LABS: Glucose Point of Care 356 mg/dL (70-110)
[2024-05-14] MEDS: dextrose 5%-ns + KCl 20 20 MEQ/1,000 ML BAG 100 MEQ IV ×2 (13:02→22:56)
--- NOTE | 2024-05-14 13:04 | PC.NURSE ---
DUE TO RAPID DROP IN BLOOD SUGAR, DR. DIAS ORDERED TO START D5 WITH NS AND 20MEQ KCL NOW.
--- NOTE | 2024-05-14 13:16 | PC.NURSE ---
PER DR. DIAS, INCREASE INSULIN DRIP TO 4 UNITS/HR DUE TO INCREASE IN BG TO 467.
[2024-05-14 13:17] LABS: Glucose Point of Care 461 mg/dL (70-110)
[2024-05-14 13:20] LABS: Lactic Acid level (Lactate) 1.6 mmol/L (0.5-2.2)
[2024-05-14 13:55] LABS: Adenovirus Not Detected (NOT DETECT); Chlamydia Pneumoniae Not Detected (NOT DETECT); Coronavirus 229E,HKU1,NL63,OC4 Not Detected (NOT DETECT); Human Metapneumovirus Not Detected (NOT DETECT); Human Rhinovirus/Enterovirus Not Detected (NOT DETECT); Influenza A Not Detected (NOT DETECT); Influenza A H1 Not Detected (NOT DETECT); Influenza A H1-2009 Not Detected (NOT DETECT); Influenza A H3 Not Detected (NOT DETECT); Influenza B Not Detected (NOT DETECT); Mycoplasma Pneumoniae Not Detected (NOT DETECT); Parainfluenza Virus Type 1 Not Detected (NOT DETECT); Parainfluenza Virus Type 2 Not Detected (NOT DETECT); Parainfluenza Virus Type 3 Not Detected (NOT DETECT); Parainfluenza Virus Type 4 Not Detected (NOT DETECT); Respiratory Syncytial Virus A Not Detected (NOT DETECT); Respiratory Syncytial Virus B Not Detected (NOT DETECT); SARS-COV-2 Not Detected (NOT DETECT)
[2024-05-14] MEDS: pantoprazole DR 40 mg Tablet PO (15:09)
[2024-05-14 15:10] LABS: Anion Gap 15.8 (5-19); Blood Urea Nitrogen 21 mg/dL (6-20); Calcium 8.5 mg/dL (8.5-10.5); Carbon Dioxide 20 mmol/L (22-29); Chloride 102 mmol/L (98-107); Creatinine Clr Calc Pharmacy 68.7193; Glomerular Filtration Rate 56.5 mL/min (90-130); Glucose 361 mg/dL (65-115); Magnesium 1.6 mg/dL (1.7-2.3); Osmolality Calculated 296 mOsm/kg (285-295); Potassium 3.8 mmol/L (3.5-5.1); Sodium 134 mmol/L (136-145)
[2024-05-14] MEDS: BuSPIRONE 10 mg Tablet 5 MG PO ×2 (15:19→21:20)
[2024-05-14] MEDS: gabapentin 300 mg Capsule PO (15:20)
[2024-05-14] MEDS: enoxaparin 40 mg/0.4 mL Syringe SUBCUT (15:21)
[2024-05-14] MEDS: magnesium sulfate premix 2 GM/50 ML PIGGYBACK IV (15:43)
[2024-05-14 16:33] LABS: Glucose Point of Care 290 mg/dL (70-110)
[2024-05-14 17:59] LABS: Glucose Point of Care 236 mg/dL (70-110)
[2024-05-14] MEDS: azithromycin 250 mg Tablet 500 MG PO (18:07)
[2024-05-14] MEDS: mirtazapine 15 mg Tablet 45 MG PO (18:08)
[2024-05-14 19:17] LABS: Glucose Point of Care 185 mg/dL (70-110)
[2024-05-14 19:54] LABS: Blood Urea Nitrogen 19 mg/dL (6-20); Calcium 8.4 mg/dL (8.5-10.5); Carbon Dioxide 17 mmol/L (22-29); Chloride 104 mmol/L (98-107); Creatinine Clr Calc Pharmacy 83.9903; Glomerular Filtration Rate 71.3 mL/min (90-130); Glucose 196 mg/dL (65-115); Osmolality Calculated 296 mOsm/kg (285-295); Sodium 139 mmol/L (136-145)
[2024-05-14 19:59] LABS: Anion Gap 22.3 (5-19); Potassium 4.3 mmol/L (3.5-5.1)
[2024-05-14 20:24] LABS: Glucose Point of Care 255 mg/dL (70-110)
[2024-05-14] MEDS: gabapentin 300 mg Capsule 600 MG PO (21:20)
[2024-05-14] MEDS: trazodone 50 mg Tablet PO (21:32)
[2024-05-14 21:33] LABS: Glucose Point of Care 188 mg/dL (70-110)
[2024-05-14 22:38] LABS: Glucose Point of Care 210 mg/dL (70-110)
[2024-05-14 22:49] LABS: Anion Gap 13.1 (5-19); Blood Urea Nitrogen 15 mg/dL (6-20); Carbon Dioxide 21 mmol/L (22-29); Chloride 108 mmol/L (98-107); Creatinine Clr Calc Pharmacy 75.5913; Glomerular Filtration Rate 63.1 mL/min (90-130); Glucose 228 mg/dL (65-115); Osmolality Calculated 294 mOsm/kg (285-295); Potassium 4.1 mmol/L (3.5-5.1); Sodium 138 mmol/L (136-145)
[2024-05-14 22:59] LABS: Phosphorus 2.8 mg/dL (2.5-4.5)
[2024-05-14 23:25] LABS: Glucose Point of Care 192 mg/dL (70-110)
[2024-05-15] VITALS (45 sets, daily range): BP systolic 80–127; BP diastolic 45–82; PULSE 61–97; RESP 14–28; TEMP 36.6–37.1; O2SAT 88–100; BMI 22.9
[2024-05-15 00:24] LABS: Glucose Point of Care 168 mg/dL (70-110)
[2024-05-15 01:25] LABS: Glucose Point of Care 128 mg/dL (70-110)
[2024-05-15 02:36] LABS: Glucose Point of Care 129 mg/dL (70-110)
[2024-05-15 03:07] LABS: Anion Gap 12.2 (5-19); Blood Urea Nitrogen 13 mg/dL (6-20); Calcium 8.4 mg/dL (8.5-10.5); Carbon Dioxide 23 mmol/L (22-29); Chloride 112 mmol/L (98-107); Creatinine Clr Calc Pharmacy 75.5913; Glomerular Filtration Rate 63.1 mL/min (90-130); Glucose 141 mg/dL (65-115); Osmolality Calculated 298 mOsm/kg (285-295); Potassium 4.2 mmol/L (3.5-5.1); Sodium 143 mmol/L (136-145)
[2024-05-15 03:30] LABS: Glucose Point of Care 113 mg/dL (70-110)
[2024-05-15 04:34] LABS: Glucose Point of Care 246 mg/dL (70-110)
[2024-05-15] MEDS: insulin glargine 100 units/1 mL 14 UNIT SUBCUT (05:01)
[2024-05-15 05:37] LABS: Glucose Point of Care 120 mg/dL (70-110)
[2024-05-15 06:39] LABS: Glucose Point of Care 102 mg/dL (70-110)
[2024-05-15] MEDS: acetaminophen 325 mg Tablet 650 MG PO (06:42)
[2024-05-15 07:08] LABS: Basophils # 0.1 10^3/uL (0.0-0.1); Basophils % 0.7 %; Eosinophils # 0.1 10^3/uL (0.0-0.8); Eosinophils % 1.2 %; Hematocrit 35.9 % (36-47); Lymphocytes # 3.3 10^3/uL (0.8-4.8); Lymphocytes % 29.3 %; Mean Corpuscular HGB Conc 31.5 g/dL (30-55); Mean Corpuscular Hemoglobin 30.7 pg (27-33); Mean Corpuscular Volume 97.6 fl (85-98); Mean Platelet Volume 9.9 fL (7.4-10.4); Monocytes # 0.7 10^3/uL (0.2-0.9); Monocytes % 6.5 %; Neutrophils # 7.04 10^3/uL (1.8-7.7); Nucleated Red Blood Cells % 0 %; Platelet Count 230 10^3/cmm (157-399); Red Blood Count 3.68 10^6/uL (3.85-5.65); Red Cell Distribution Width 12.9 % (12.1-15.1); White Blood Count 11.36 10^3/uL (3.29-11.43)
[2024-05-15 07:10] LABS: Alanine Aminotransferase 7 U/L (0-33); Albumin Level 3.1 g/dL (3.5-5.2); Alkaline Phosphatase 109 U/L (35-105); Aspartate Amino Transferase 11 U/L (0-32); Blood Urea Nitrogen 12 mg/dL (6-20); Calcium 8.4 mg/dL (8.5-10.5); Carbon Dioxide 20 mmol/L (22-29); Chloride 113 mmol/L (98-107); Creatinine Clr Calc Pharmacy 84.5396; Globulin 3.1 g/dL (1.3-4.6); Glomerular Filtration Rate 71.3 mL/min (90-130); Glucose 119 mg/dL (65-115); Magnesium 1.9 mg/dL (1.7-2.3); Osmolality Calculated 293 mOsm/kg (285-295); Sodium 141 mmol/L (136-145); Total Bilirubin 0.2 mg/dL (0.15-1.2); Total Protein 6.2 g/dL (6.6-8.7)
[2024-05-15 07:35] LABS: Glucose Point of Care 84 mg/dL (70-110)
[2024-05-15] MEDS: levalbuterol 0.63 mg/3 mL Neb INHALATION (08:12)
[2024-05-15] MEDS: azithromycin 250 mg Tablet 500 MG PO (09:19)
[2024-05-15] MEDS: pantoprazole DR 40 mg Tablet PO (09:20)
[2024-05-15] MEDS: BuSPIRONE 10 mg Tablet 5 MG PO (09:20)
[2024-05-15 09:31] LABS: Glucose Point of Care 270 mg/dL (70-110)
[2024-05-15] MEDS: fluticasone nasal spray 16gm Btl 1 SPRAY INTRANASAL (09:36)
[2024-05-15] MEDS: gabapentin 300 mg Capsule PO (09:37)
[2024-05-15] MEDS: insulin lispro 100 unit/1 mL SUBCUT ×3 (09:38→12:39)
--- NOTE | 2024-05-15 09:41 | PC.NURSE ---
0900 Patient scheduled to go home later today when family arrives and will put her insulin pump back on when home, so did not want 9am Lantus given. 0930 Patient ask to check blood sugar now, read [address] Ford says to give short acting insulin according to what patient felt was appropriate. 4u regular insulin given SQ.
--- NOTE | 2024-05-15 09:46 | PM.DCS ---
Discharge Providers Date of Admission: 05/14/24 14:15 Date of Discharge: May 15, 2024 Attending Provider at Admission: Blayne Ford MD Attending Provider at Discharge: Blayne Ford MD Primary Care Provider: Sarahi Nation MD Diagnoses at Discharge Discharge Diagnosis (1) DKA, type 1: Status: Acute Qualifiers: Diabetes mellitus complication detail: without coma Qualified Code(s): E10.10 - Type 1 diabetes mellitus with ketoacidosis without coma (2) Cystic fibrosis: Status: Chronic Reason for Visit Reason for Visit: hypoglycemia Hospital Course Hospital Course Patient is a 34-year-old white female with type 1 diabetes, and cystic fibrosis who presented to the hospital with dizziness, nausea and vomiting. She had malfunction of her insulin pump. She was in DKA. She was hydrated, and started on DKA protocol. She was monitored closely in the ICU, and had resolution of her anion gap acidosis. She had no evidence of infection. With her anion gap closed, her tolerating p.o., having received long-acting insulin, she was able to be discharged on May 15. Upon going home she will resume her insulin pump treatment which she reports she has supplies for. She will follow-up with her primary care provider and combat systems operator. She was able to ask questions and agrees with the plan. Physical Exam Narrative: General Exam no distress Neck is supple Cardiovascular regular rate and rhythm Lungs clear Abdomen soft Extremities no cyanosis clubbing or edema Discharge Data Studies Completed and Pending Completed Studies During Hospitalization Category Date Time Status XR chest 1V portable [id number] Urgent Exams 05/14/24 10:20 Completed Radiology Impressions Chest X-Ray 05/14/24 10:20 IMPRESSION: 1. Slight infiltrate, atelectasis, and/or fibrosis over portions of lungs, perihilar regions, right greater than left. Perhaps slight peribronchial thickening. Correlate for nonspecific bronchitis/bronchiolitis, reactive airways, or other process. 2. Nonspecific calcific densities over right upper quadrant abdomen. Correlation with ultrasound scan, possibly CT scan recommended. 3. Please see body of report. Laboratory Results WBC 11.36 10^3/uL (3.29-11.43) 05/15/24 06:32 RBC 3.68 10^6/uL (3.85-5.65) L 05/15/24 06:32 Hgb 11.30 g/dL (11.27-16.99) 05/15/24 06:32 Hct 35.9 % (36-47) L 05/15/24 06:32 MCV 97.6 fl (85-98) 05/15/24 06:32 MCH 30.7 pg (27-33) 05/15/24 06:32 MCHC 31.5 g/dL (30-55) 05/15/24 06:32 RDW 12.9 % (12.1-15.1) 05/15/24 06:32 Plt Count 230 10^3/cmm (157-399) 05/15/24 06:32 MPV 9.9 fL (7.4-10.4) 05/15/24 06:32 Neut % (Auto) 62.0 % 05/15/24 06:32 Lymph % (Auto) 29.3 % 05/15/24 06:32 [place] % (Auto) 6.5 % 05/15/24 06:32 Eos % (Auto) 1.2 % 05/15/24 06:32 Baso % (Auto) 0.7 % 05/15/24 06:32 Neut # (Auto) 7.04 10^3/uL (1.8-7.7) 05/15/24 06:32 Lymph # (Auto) 3.3 10^3/uL (0.8-4.8) 05/15/24 06:32 [place] # (Auto) 0.7 10^3/uL (0.2-0.9) 05/15/24 06:32 Eos # (Auto) 0.1 10^3/uL (0.0-0.8) 05/15/24 06:32 Baso # (Auto) 0.1 10^3/uL (0.0-0.1) 05/15/24 06:32 Nucleated RBC % (auto) 0 % 05/15/24 06:32 Nucleated RBCs # 0.0 /100WBC 05/15/24 06:32 Specimen Type Arterial 05/14/24 09:09 Sample Site Brachial, right 05/14/24 09:09 ABG pH 7.20 (7.35-7.45) L 05/14/24 09:09 ABG pCO2 31.2 mmHg (35-45) L 05/14/24 09:09 ABG pO2 89.5 mmHg (80.0-100.0) 05/14/24 09:09 ABG PO2/FiO2 Ratio 426 05/14/24 09:09 ABG HCO3 12.2 mmol/L (22-26) L 05/14/24 09:09 ABG O2 Saturation 95.4 05/14/24 09:09 ABG Base Excess -14.5 mmol/L (-2.0-2.0) L 05/14/24 09:09 Te Test N/a 05/14/24 09:09 A-a O2 Gradient 2.7 mmHg (5-10) L 05/14/24 09:09 Hematocrit 37.0 % (37-47) 05/14/24 09:09 Hgb O2 Saturation 94.2 % (95-100) L 05/14/24 09:09 Carboxyhemoglobin 1.1 %THgb (0.4-20.1) 05/14/24 09:09 Methemoglobin 0.2 % (0.4-1.5) L 05/14/24 09:09 Total Hemoglobin 12.1 g/dL (12-16) 05/14/24 09:09 Sodium 132.0 mmol/L (131-143) 05/14/24 09:09 Potassium 4.3 mmol/L (3.5-5.0) 05/14/24 09:09 Glucose 798.0 mg/dL (70-115) H 05/14/24 09:09 Ionized Calcium 1.2 mmol/L (1.1-1.4) 05/14/24 09:09 O2 Delivery Device Room air 05/14/24 09:09 FiO2 21.0 % 05/14/24 09:09 Oil Agent ID Amh 05/14/24 09:09 Sodium 141 mmol/L (136-145) 05/15/24 06:32 Potassium 4.0 mmol/L (3.5-5.1) 05/15/24 06:32 Chloride 113 mmol/L (98-107) H 05/15/24 06:32 Carbon Dioxide 20 mmol/L (22-29) L 05/15/24 06:32 Anion Gap 12.0 (5-19) 05/15/24 06:32 BUN 12 mg/dL (6-20) 05/15/24 06:32 Creatinine 0.9 mg/dL (0.5-0.9) 05/15/24 06:32 GFR Calculation 71.3 mL/min (90-130) L 05/15/24 06:32 Glucose 119 mg/dL (65-115) H 05/15/24 06:32 POC Glucose 270 mg/dL (70-110) H 05/15/24 09:25 Calculated Osmolality 293 mOsm/kg (285-295) 05/15/24 06:32 Lactic Acid 5.7 mmol/L (0.5-2.2) H* 05/14/24 09:59 Lactic Acid (Sepsis) 1.6 mmol/L (0.5-2.2) 05/14/24 12:52 Calcium 8.4 mg/dL (8.5-10.5) L 05/15/24 06:32 Phosphorus 2.8 mg/dL (2.5-4.5) 05/14/24 22:22 Magnesium 1.9 mg/dL (1.7-2.3) 05/15/24 06:32 Total Bilirubin 0.2 mg/dL (0.15-1.2) 05/15/24 06:32 AST 11 U/L (0-32) 05/15/24 06:32 ALT 7 U/L (0-33) 05/15/24 06:32 Alkaline Phosphatase 109 U/L (35-105) H 05/15/24 06:32 Total Protein 6.2 g/dL (6.6-8.7) L D 05/15/24 06:32 Albumin 3.1 g/dL (3.5-5.2) L 05/15/24 06:32 Globulin 3.1 g/dL (1.3-4.6) 05/15/24 06:32 Lipase 5 U/L (13-60) L 05/14/24 09:59 HCG, Qual Negative (Negative) 05/14/24 09:59 Urine Color Yellow (Yellow) 05/14/24 11:37 Urine Appearance Clear (CLEAR) 05/14/24 11:37 Urine pH 5.0 (5-7) 05/14/24 11:37 Ur Specific [place] 1.023 (1.005-1.030) 05/14/24 11:37 Urine Protein Negative (Negative) 05/14/24 11:37 Urine Glucose (UA) 3+ (Normal) H 05/14/24 11:37 Urine Ketones 3+ (Negative) H 05/14/24 11:37 Urine Blood Trace (Negative) A 05/14/24 11:37 Urine Nitrate Negative (Negative) 05/14/24 11:37 Urine Bilirubin Negative (Negative) 05/14/24 11:37 Urine Urobilinogen 0.2 mg/dL (Negative) 05/14/24 11:37 Ur Leukocyte Esterase Negative (Negative) 05/14/24 11:37 Urine RBC 3-5 /hpf (0-2) 05/14/24 11:37 Urine WBC 0-5 /hpf (0-5) 05/14/24 11:37 Ur Squamous Epith Cells 0-5 /hpf (0-5) 05/14/24 11:37 Amorphous Sediment Not Reportable 05/14/24 11:37 Urine Bacteria None seen /hpf (NONE) 05/14/24 11:37 Hyaline Casts 1.21 /lpf 05/14/24 11:37 Serum Ketones Positive (Negative) H 05/14/24 09:59 Adenovirus (PCR) Not detected (NOT DETECT) 05/14/24 12:02 C. pneumoniae DNA (PCR) Not detected (NOT DETECT) 05/14/24 12:02 Coronavirus 229E (PCR) Not detected (NOT DETECT) 05/14/24 12:02 Human Metapneumovir PCR Not detected (NOT DETECT) 05/14/24 12:02 Influenza A (H1) PCR Not detected (NOT DETECT) 05/14/24 12:02 Influ A (H1/09) PCR Not detected (NOT DETECT) 05/14/24 12:02 Influenza A (H3) PCR Not detected (NOT DETECT) 05/14/24 12:02 Influenza Type A (PCR) Not detected (NOT DETECT) 05/14/24 12:02 Influenza Type B (PCR) Not detected (NOT DETECT) 05/14/24 12:02 M. pneumoniae (PCR) Not detected (NOT DETECT) 05/14/24 12:02 Parainfluenza 1 (PCR) Not detected (NOT DETECT) 05/14/24 12:02 Parainfluenza 2 (PCR) Not detected (NOT DETECT) 05/14/24 12:02 Parainfluenza 3 (PCR) Not detected (NOT DETECT) 05/14/24 12:02 Parainfluenza 4 (PCR) Not detected (NOT DETECT) 05/14/24 12:02 RSV Type A (PCR) Not detected (NOT DETECT) 05/14/24 12:02 RSV Type B (PCR) Not detected (NOT DETECT) 05/14/24 12:02 Entero/Rhino (PCR) Not detected (NOT DETECT) 05/14/24 12:02 SARS-CoV-2 (PCR) Not detected (NOT DETECT) 05/14/24 12:02 Vitals Last Vital Signs Temp 98.1 F 05/15/24 05:00 Pulse 87 05/15/24 08:30 Resp 14 05/15/24 08:30 BP 113/81 05/15/24 08:30 Pulse Ox 100 05/15/24 08:30 O2 Del Method Room Air 05/15/24 08:12 Discharge Plan Discharge Patient Disposition: Home Condition: Stable Prescriptions: Continued trazodone 50 mg tablet See Rx Instructions .ROUTE .COMPLEX Qty: 30 5RF Dose Instruction: TAKE 1/2-1 TABLET BY MOUTH EVERY NIGHT AT BEDTIME Rx Instructions: TAKE 1/2-1 TABLET BY MOUTH EVERY NIGHT AT BEDTIME levalbuterol HCl 0.63 mg/3 mL solution for nebulization 0.63 mg INHALATION DAILY ursodiol 300 mg capsule 300 mg PO DAILY gabapentin 300 mg capsule See Rx Instructions .ROUTE .COMPLEX Rx Instructions: PT STATES SHE TAKES 1 TABS IN THE MORNING, 1 TAB IN THE AFTERNOON, AND 2 TABS AT NIGHT omeprazole 20 mg capsule,delayed release(DR/EC) 40 mg PO DAILY Creon 24,000-76,000 -120,000 unit capsule,delayed release(DR/EC) See Rx Instructions .ROUTE .COMPLEX Rx Instructions: orally PT STATES SHE TAKES 2 TABS WITH MEALS AND 2 TABS WITH SNACKS. buspirone 5 mg tablet 5 mg PO TID Pulmozyme 1 mg/mL solution 1 mg INHALATION DAILY insulin lispro [Humalog U-100 Insulin] 100 unit/mL solution See Rx Instructions .ROUTE .COMPLEX Rx Instructions: with insulin pump inject subq a max of 60 units per day fluticasone propionate 50 mcg/actuation spray,suspension 1 spray INTRANASAL DAILY azithromycin 500 mg tablet 500 mg PO BID fluoride (sodium) [Sodium Fluoride 5000 Plus] 1.1 % cream 1 applic dental DAILY sodium chloride [Hyper-Lucien] 7 % solution for nebulization 1 inh INHALATION PRN [place] 75 mg/mL solution for nebulization 75 mg INHALATION BID Trikafta 100-50-75 mg(d) /150 mg (n) tablets, sequential 1 ea PO TID mirtazapine 45 mg tablet 45 mg PO QPM Rx Instructions: TAKE ONE TABLET BY MOUTH EVERY NIGHT AT BEDTIME Rexulti 4 mg tablet 4 mg PO DAILY Discharge Orders: Discharge Order (Routine); Ordered 05/15/24 Ordered By: Blayne Ford Referrals: Sarahi Nation MD [Primary Care Provider] - 4-7 days Discharge Diet: Diabetic Patient Instructions: Opioid Safety Activity Restrictions/Additional Instructions: With your combat systems operator in a week Resume your insulin pump upon returning home Return for any concerns Encourage hydration Discharge Attestations Time Spent in Discharge Care*: greater than 30 min Quality Metrics Clinical Quality Measures [ No reported AMI, CVA or VTE this stay] Coding Level of Care Code 07049 Total time (in minutes) for Discharge: 32 Diagnoses DKA, type 1 E10.10 Diabetes mellitus complication detail: without coma Cystic fibrosis E84.9
[2024-05-15 11:29] LABS: Glucose Point of Care 292 mg/dL (70-110)
--- NOTE | 2024-05-15 12:42 | PC.NURSE ---
1230 3u insulin Regular given to cover carbs on tray she will eat for lunch.
[2024-05-15 12:44] LABS: Glucose Point of Care 361 mg/dL (70-110)
--- NOTE | 2024-05-15 15:21 | PC.NURSE ---
1511 Patient discharge instructions given. Ivs removed and monitors removed. Patient speaking with father on phone and at ER door to pick her up. Discharged patient via w/c with all belongings and not complaints. Assisted patient into family car.
== END 2024-05-15 15:11 | disposition home or self-care (01) ==
LOC: ER 13:51 → ICU 19:18 → ER IP 05-15 10:56
PROVIDERS: Family Medicine; Internal Medicine; Admitting Provider Internal Medicine; Emergency Provider Physician Assistant; PCP Family Medicine; Visit Provider Internal Medicine
DX: E10.10 Type 1 diabetes mellitus with ketoacidosis without coma (principal); Z96.41 Presence of insulin pump (external) (internal); E84.9 Cystic fibrosis, unspecified; F41.1 Generalized anxiety disorder; K21.9 Gastro-esophageal reflux disease without esophagitis; F32.A Depression, unspecified
CPT/HCPCS: 36415; 36416; 36600; 71045; 80048; 80051; 80053; 81001; 82009; 82330; 82805; 82962; 83605; 83690; 83735; 84100; 84703; 85025; 87486; 87581; 87633; 93005; 94640; 96365; 96366; 96367; 96372; 96375; 99291; 99292; G0378; J1650; J1815; J3475; J7030; J7040; J7614; Q0144